=== PATIENT | male | born 1975 | race Caucasian/White ===

== ENCOUNTER 2023-04-19 09:42 | Inpatient (IN) ==
[2023-04-19 10:36] LABS: Basophils # (auto) 0.03 K/uL (0.00-0.20); Basophils % (auto) 0.3 %; Eosinophils # (auto) 0.15 K/uL (0.00-0.50); Eosinophils % (auto) 1.5 %; Hematocrit (blood only) 46.4 % (42.0-52.0); Hemoglobin 15.4 g/dl (14.0-18.0); Immature Granulocytes # (auto) 0.03 K/uL (0.01-0.20); Immature Granulocytes % (auto) 0.3 %; Lymphocytes # (auto) 2.08 K/uL (1.20-3.40); Lymphocytes % (auto) 20.1 %; Mean Corpuscular Hemoglobin 29.7 pg (25.0-34.0); Mean Corpuscular Hgb Conc 33.2 g/dL (32.0-36.0); Mean Corpuscular Volume 89.6 fL (80.0-100.0); Mean Platelet Volume 9.2 fL (9.4-12.4); Monocytes % (auto) 6.8 %; Neutrophils # (auto) 7.34 K/uL (1.40-6.50); Platelet Count 235 K/uL (130-400); RDW Coefficient of Variation 13.5 % (11.5-14.5); RDW Standard Deviation 44.2 fL (36.4-46.3); Red Blood Count 5.18 M/uL (4.70-6.10); White Blood Count 10.33 K/ul (4.8-10.8)
[2023-04-19 10:49] LABS: Albumin Globulin Ratio 1.3 (0.9-2); Albumin Level 4.2 gm/dl (3.4-5.0); BUN Creatinine Ratio 20.7 (10-20); Bilirubin,Total 0.3 mg/dl (0.2-1.0); Calcium 9.2 mg/dl (8.6-10.3); Creatinine Clr Calc Pharmacy 129.3 ml/min; Est GFR (Non-African American) 96.6 ml/min; Globulin 3.3 gm/dl (2.5-4.0); Potassium 4.2 mmol/L (3.5-5.1); Total Protein 7.5 gm/dl (6.0-8.3)
[2023-04-19 11:01] LABS: INR 0.9 (0.9-1.1); Partial Thromboplastin Time 27 Seconds (21-31); Prothrombin Time 10.3 Seconds (9.0-12.0)
--- NOTE | 2023-04-19 11:05 | XRay Report ---
XR chest 1V not portable HISTORY: Chest pain, nonspecific COMPARISON: Chest 01/12/2012. FINDINGS: The lungs are clear. Cardiac silhouette is normal in size. No pleural effusions. No pneumot horax. IMPRESSION: No acute process. ACT 112: Negative or not required by law. Electronically signed by: Charles Conde M.D. 04/19/2023 11:04 AM
[2023-04-19 11:14] LABS: Troponin I High Sensitivity 87.6 pg/ml (0-20)
--- NOTE | 2023-04-19 11:25 | Electrocardiogram Report ---
Test Reason : Blood Pressure : / mmHG Vent. Rate : 104 BPM Atrial Rate : 104 BPM P-R Int : 164 ms QRS Dur : 088 ms QT Int : 334 ms P-R-T Axes : 029 021 018 degrees QTc Int : 439 ms Sinus tachycardia Otherwise normal ECG When compared with ECG of 12-JAN-2012 17:33, No significant change was found Confirmed by Ronak Garrett ([id number]) on 04/19/2023 11:25:13 AM Referred By: Confirmed By:Ronak Garrett
--- NOTE | 2023-04-19 11:39 | Emergency Department Note ---
Impression & Plan Pulmonary embolism, Chest pain, Elevated troponin I level, DVT (deep venous thrombosis) ED Provider Note NAME: JANET RICKETTS AGE: 48 SEX: M : 1975 ARRIVES VIA: Walk-In INFORMANT: Patient, ED PROVIDER(S): Montrell Paul DO CHIEF COMPLAINT: Chest pain HPI: The patient is a 48-year-old male who presented to the emergency department for an evaluation of chest pain. The patient describes anterior chest pain that began this morning while he was exerting himself. He started noticing shortness of breath as well as left calf pain. The patient denies having any fever or cough. He denies having any back pain. The patient did not take any medication prior to coming to the emergency department. He still describes anterior chest pressure but denies having any difficulty breathing at this time. The patient denies having any abdominal pain or vomiting. He felt very diaphoretic at the time. ROS: See above HPI for pertinent positives & negatives. A total of 10 systems reviewed and were otherwise negative. PAST MEDICAL HISTORY: See Below PAST SURGICAL HISTORY: See Below FAMILY HISTORY: See Below SOCIAL HISTORY: See Below HOME MEDICATIONS: See Below ALLERGIES: See Below VITALS: See Below PHYSICAL EXAMINATION: GENERAL: Patient is awake alert in no acute distress patient is resting comfortably and showing no signs of anxiety EYES: The conjunctivae are clear. The pupils are round and reactive. EARS, NOSE, MOUTH AND THROAT: The nose is without any evidence of any deformity. NECK: The neck is nontender and supple. RESPIRATORY: Normal respiratory effort is noted there is no evidence of wheezing rhonchi or rales CARDIOVASCULAR: Regular rate and rhythm noted there no murmurs rubs or gallops normal S1 normal S2. GASTROINTESTINAL: The abdomen is soft. Abdomen is nontender. MUSCULOSKELETAL/EXTREMITIES: There is no evidence of gross deformity full range of motion is noted in the hips and shoulders. SKIN: There is no obvious evidence of any rash. There are no petechiae, pallor or cyanosis noted. NEUROLOGIC: Patient is awake alert and oriented x3 MEDICAL DECISION MAKING: The patient is a 48-year-old male who presented to the emergency department for an evaluation of chest pain. The patient was found to have an abnormal EKG but it does appear to be similar to previous. He was initially evaluated in the waiting room however his troponin came back elevated so he was placed in a room soon as possible. The patient was tachycardic. Oxygen saturation was acceptable. His chest pain appeared to be exertional but he also had calf pain. For this reason a D-dimer was ordered which was significantly elevated. For this reason CT of the chest was ordered. My interpretation of the CT of the chest was consistent with bilateral pulmonary emboli with significant clot burden. For this reason heparin was ordered. I discussed the patient's laboratory and radiographic studies with him and his significant other. I also discussed his condition with the on-call [facility] Hospitalist. They have agreed to evaluate the patient in the emergency department for further management and disposition. Triage Nursing notes reviewed. Prior medical records reviewed Vital Signs: reviewed and remarkable for tachycardia. Differential diagnosis: Cardiac ischemia, aortic dissection, pulmonary embolism, pneumothorax, pneumonia, pericarditis, myocarditis, esophageal rupture, GERD, cholecystitis, pancreatitis, musculoskeletal, as well as other pathologies. ER treatment provided: See below Diagnostics interpreted by me: ECG: EKG was obtained in the emergency department. My interpretation is sinus tachycardia at 104 bpm. There is no ectopy. Nonspecific ST segment abnormalities noted. This was compared to a tracing from January 12, 2012. No changes were noted Cardiac Monitoring: An order was placed for continuous cardiac monitoring. The monitor shows a rate of 108 bpm with sinus tachycardia. Laboratory studies: As stated above and show below. Imaging studies: See below. Radiographic imaging was reviewed by myself Consultation(s): I discussed this case with Charisma who is on-call for the [facility] Hospitalist group. ED COURSE: Procedures: none Critical Care: I have personally spent greater than 55 minutes of critical care time in the direct management of this patient. This includes bedside care, interpretation of diagnostic studies, and testing, discussion with consultants, patient, and family members, and other required patient management activities. This 55 minutes is in excess of all separately billable procedures. Past Med/Surg History Medical History Depression Pre-diabetes PRESLEY (obstructive sleep apnea) Hyperlipidemia Surgical History (Updated 04/19/23 @ 13:51 by Sue Pond PA-C) History of esophagogastroduodenoscopy (EGD) H/O colonoscopy No significant past surgical history Family History (Updated 04/19/23 @ 15:01 by Sue Pond PA-C) Denies family history of Clotting disorder Social History (Updated 04/19/23 @ 15:06 by Sue Pond PA-C) Smoking Status: Never smoker Hx Alcohol Use: No Hx Substance Use: No Preferred Language: Vietnamese [employer]eral Car [employer] Required: No Beliefs That Will Affect Care: None marital status: Current Living Situation: Spouse current occupational status: employed Other Information That Helps Us Care for You: No Feels Safe at Home: Yes Safety Concerns: Feels Safe At This Time Assistive Devices: CPAP and Glasses Allergies Allergies Allergy/AdvReac Type Severity Reaction Status Date / Time Penicillins Allergy Unknown ? Unverified 11/30/15 08:07 Home Meds Home Medications Medication Instructions Recorded Confirmed bupropion HCl 150 mg tablet,12 hr 150 mg PO [facility] 04/19/23 04/19/23 sustained-release buspirone 30 mg tablet 15 mg PO [facility] 04/19/23 04/19/23 lovastatin 40 mg tablet 80 mg PO HS 04/19/23 04/19/23 sertraline 25 mg tablet 25 mg PO DAILY 04/19/23 04/19/23 sertraline 50 mg tablet 50 mg PO DAILY 04/19/23 04/19/23 Results & Data (ED) Vital Signs Vital Signs - 24 hr 04/19/23 09:52 04/19/23 10:01 04/19/23 10:01 Temperature 36.4 C L Temperature Source Temporal Artery Scan Pulse Rate 107 H 102 H Pulse Rate [Apical] Pulse Rhythm Regular Respiratory Rate 18 22 Respiratory Effort / Characteristics Respiratory Depth Respiratory Pattern Blood Pressure 118/86 Blood Pressure [Left Arm] Blood Pressure Mean 96 Blood Pressure Mean [Left Arm] Pulse Oximetry 95 95 95 Oxygen Delivery Method Room Air Room Air Room Air Sepsis Recent Fever Within 48 Hours No Sepsis New/Unexplained Change in Mental Status No Sepsis Action Taken by Nursing No Action Required 04/19/23 11:40 04/19/23 11:40 04/19/23 13:23 Temperature Temperature Source Pulse Rate Pulse Rate [Apical] 91 H Pulse Rhythm Respiratory Rate 18 Respiratory Effort / Characteristics Non-Labored Spontaneous Respiratory Depth Normal Respiratory Pattern Regular Blood Pressure Blood Pressure [Left Arm] 132/88 Blood Pressure Mean Blood Pressure Mean [Left Arm] 102 Pulse Oximetry 95 96 Oxygen Delivery Method Room Air Room Air Room Air Sepsis Recent Fever Within 48 Hours Sepsis New/Unexplained Change in Mental Status Sepsis Action Taken by Snf Medications Current Medication List: was personally reviewed by me Laboratory Data Attestation: I reviewed the patient's lab results. 04/20/23 05:35 04/20/23 05:35 Lab Results 04/19/23 04/19/23 04/19/23 Range/Units 10:19 10:19 11:55 WBC 10.33 (4.8-10.8) K/ul RBC 5.18 (4.70-6.10) M/uL Hgb 15.4 (14.0-18.0) g/dl Hct 46.4 (42.0-52.0) % MCV 89.6 (80.0-100.0) fL MCH 29.7 (25.0-34.0) pg MCHC 33.2 (32.0-36.0) g/dL RDW Std Deviation 44.2 (36.4-46.3) fL RDW Coeff of Lionel 13.5 (11.5-14.5) % Plt Count 235 (130-400) K/uL MPV 9.2 L (9.4-12.4) fL Immature Gran % (Auto) 0.3 % Neut % (Auto) 71.0 % Lymph % (Auto) 20.1 % [place] % (Auto) 6.8 % Eos % (Auto) 1.5 % Baso % (Auto) 0.3 % Neut # (Auto) 7.34 H (1.40-6.50) K/uL Lymph # (Auto) 2.08 (1.20-3.40) K/uL [place] # (Auto) 0.70 H (0.11-0.59) K/uL Eos # (Auto) 0.15 (0.00-0.50) K/uL Baso # (Auto) 0.03 (0.00-0.20) K/uL Immature Gran # (Auto) 0.03 (0.01-0.20) K/uL PT 10.3 (9.0-12.0) Seconds INR 0.9 (0.9-1.1) APTT 27 (21-31) Seconds PTT Ratio 1.0 D-Dimer 8260 H* Cancelled (0-500) ug/L FEU Sodium 138 (136-145) mmol/L Potassium 4.2 (3.5-5.1) mmol/L Chloride 107 (98-107) mmol/L Carbon Dioxide 23 (21-32) mmol/L Anion Gap 8 (3-11) BUN 19 (6-23) mg/dl Creatinine 0.92 (0.6-1.4) mg/dl Est Cr Clr Drug Dosing 129.3 ml/min Est GFR ( Amer) 112.0 ml/min Est GFR (Non-Af Amer) 96.6 ml/min BUN/Creatinine Ratio 20.7 H (10-20) Glucose 127 H (70-99(Fasting)) mg/dl Calcium 9.2 (8.6-10.3) mg/dl Total Bilirubin 0.3 (0.2-1.0) mg/dl AST 18 (13-39) U/L ALT 25 (7-52) U/L Alkaline Phosphatase 68 (34-104) U/L Troponin I High Sens 87.6 H* 182.6 H* D (0-20) pg/ml Total Protein 7.5 (6.0-8.3) gm/dl Albumin 4.2 (3.4-5.0) gm/dl Globulin 3.3 (2.5-4.0) gm/dl Albumin/Globulin Ratio 1.3 (0.9-2) Administered Medications Bupropion HCl (Bupropion Sr 150 Mg Tabcr) 150 mg PO [facility] Stop: 05/19/23 20:59 Last Admin: 04/19/23 20:20 Dose: 150 mg Documented By: SAIMA Buspirone HCl (Buspirone 15 Mg Tab) 15 mg PO [facility] Stop: 05/19/23 20:59 Last Admin: 04/19/23 20:20 Dose: 15 mg Documented By: SAIMA Heparin Sodium/Dextrose (Heparin Sodium/Dextrose) 25,000 units in 500 mls @ 34 mls/hr IV .[id number] [facility]; Protocol Stop: 05/19/23 13:14 Last Admin: 04/20/23 03:06 Dose: 1,700 units/hr, 34 mls/hr Documented By: SAIMA Co-signed By: MELISSA Titration: 04/20/23 03:06 Dose: Infused Documented By: SAIMA Co-signed By: MELISSA Titration: 04/19/23 19:30 Dose: 1,700 units/hr, 34 mls/hr Documented By: SAIMA Co-signed By: MELISSA Titration: 04/19/23 19:24 Dose: 1,700 units/hr, 34 mls/hr Documented By: HAKAN Co-signed By: SAIMA Admin: 04/19/23 13:19 Dose: 1,700 units/hr, 34 mls/hr Documented By: NICKI Co-signed By: KALNY Lovastatin (Lovastatin 20 Mg Tab) 80 mg PO HS [facility] Stop: 05/19/23 20:59 Last Admin: 04/19/23 20:20 Dose: 80 mg Documented By: SAIMA Discontinued Medications Aspirin (Aspirin Chew 324 Mg) 324 mg PO NOW STA Stop: 04/19/23 11:26 Last Admin: 04/19/23 11:43 Dose: 324 mg Documented By: RAE Heparin Sodium (Porcine) (Heparin Sod (Porcine) 1000 Unit/Ml) 8,000 units IV NOW ONE Stop: 04/19/23 13:16 Last Admin: 04/19/23 13:20 Dose: 8,000 units Documented By: NICKI Co-signed By: KALYN Ioversol (Optiray 320 125ml) 116 ml IV ONCE ONE Stop: 04/19/23 12:51 Last Admin: 04/19/23 12:48 Dose: 116 ml Documented By: GRACE Imaging Data Attestation: I personally reviewed and interpreted this imaging study as follows: My Impression: 1 view chest x-ray was obtained in the emergency department. My interpretation is no free air or definite infiltrate, final report below. CT angiography of the chest was obtained. My interpretation is bilateral pulmonary emboli with dilation of the right ventricle. Final report below. Radiologist's Impression: Venous Doppler Study 04/19/23 12:50 Exam(s): US VENOUS BILATERAL LOWER EXTREMITIES EXAM: US Duplex Bilateral Lower Extremities Veins CLINICAL HISTORY: calf pain. TECHNIQUE: Real-time duplex ultrasound scan of the bilateral lower extremity veins integrating B-mode two-dimensional vascular structure, Doppler spectral analysis, color flow Doppler imaging and compression. COMPARISON: No relevant prior studies available. FINDINGS: Right deep veins: Unremarkable. No DVT in the right common femoral, femoral, proximal deep femoral or popliteal veins. The veins demonstrate normal color flow, are normally compressible, with normal phasic flow and/or augmentation response. The interrogated calf veins are patent. Right superficial veins: Unremarkable. No thrombus in the saphenofemoral junction. Left deep veins: No DVT in the left common femoral, proximal deep femoral or femoral veins. Echogenic material noted in the left popliteal vein, which is only partially compressible and demonstrates partial filling defect and color flow imaging. There is occlusion of the left posterior tibial veins also noted. The remaining calf veins are patent. Left superficial veins: Unremarkable. No thrombus in the saphenofemoral junction. Soft tissues: No acute findings. No popliteal cyst. IMPRESSION: 1. Findings noted within the distal left popliteal vein, consistent with partially occlusive thrombus. There is occlusion of the left posterior tibial veins also noted. 2. No proximal/central extension of the left popliteal deep vein thrombosis to involve the left superficial femoral or common femoral veins. 3. No evidence for deep vein thrombosis involving the right lower extremity. Electronically signed by: Brian Chirinos MD 04/20/23 03:10 AM Discharge Plan Visit Data Chief Complaint: Shortness of Breath/Dyspnea Stated Complaint: SOB/TIGHTNESS IN CHEST/COLD SWEAT/DIZZY ED Provider: Montrell Paul Discharge Problem: Pulmonary embolism, Chest pain, Elevated troponin I level, DVT (deep venous thrombosis) Patient Disposition: Being Evaluated by Hospitalist Discharge Instructions Interventions: ED Discharge Assessment Last Done: 04/19/23 17:24 Discharge Problem: Pulmonary embolism Qualifiers: Pulmonary embolism type: unspecified Chronicity: acute Acute cor pulmonale presence: with acute cor pulmonale Qualified Code(s): I26.09 - Other pulmonary embolism with acute cor pulmonale Chest pain Qualifiers: Chest pain type: unspecified Qualified Code(s): R07.9 - Chest pain, unspecified DVT (deep venous thrombosis) Qualifiers: DVT location: lower extremity Affected thrombotic vein of extremity: popliteal Chronicity: acute Laterality: left Qualified Code(s): I82.432 - Acute embolism and thrombosis of left popliteal vein
[2023-04-19] MEDS: ASPIRIN CHEW 324 MG PO STA (11:43)
[2023-04-19 12:07] LABS: D Dimer 8260 ug/L FEU (0-500)
[2023-04-19] MEDS: OPTIRAY 320 125ml IV ONE (12:48)
[2023-04-19] MEDS ORDERED: Heparin IV Adult Wt-Based Standard w/ INITIAL Bolus Protocol IV STA (12:50)
--- NOTE | 2023-04-19 13:05 | CT Scan Report ---
CT angio chest PE protocol CT DOSE: 1062.74 mGy.cm HISTORY: 48 years-old Male with PE. Acute shortness of breath TECHNIQUE: Multiple CTA images of the chest were obtained after the intravenous administration of 116 ml Optiray. Coronal and sagittal MIPS were obtained from the axial data set and were submitted for review. All measurements were obtained according to NASCET criteria. A dose lowering technique was u tilized adhering to the principles of ALARA. COMPARISON: Chest radiograph of same day, CTA chest 01/12/2012 FINDINGS: CTA: Heart is normal in size. No pericardial effusion. Unremarkable thoracic aorta. Opacified venous colla terals of the upper midline chest wall. There is straightening of the intraventricular septum with di lation of the right heart. There is a large amount of bilateral lobar, segmental and subsegmental pul monary emboli. No sagittal pulmonary emboli identified. CT CHEST: No pneumothorax, pleural effusion, airspace consolidation or pulmonary edema. Central airways are pat ent. Unremarkable thyroid. No lymphadenopathy. No acute upper abdominal abnormality. Unremarkable sof t tissues. No acute fracture. IMPRESSION: 1. Extensive bilateral pulmonary emboli with right heart strain. 2. No pleural effusion, lymphadenopathy or airspace consolidation. ACT 112: Negative or not required by law. The above report was generated using voice recognition software. It may contain grammatical, syntax o r spelling errors. Electronically signed by: Narayan Quiñones M.D. 04/19/2023 1:04 PM
[2023-04-19] MEDS ORDERED: HEPARIN SOD (PORCINE) 1000 UNIT/ML IV ONE (13:06)
[2023-04-19] MEDS: HEPARIN SODIUM/DEXTROSE 25,000 UNITS/500 ML BAG IV SCH (13:19)
[2023-04-19] MEDS: HEPARIN SOD (PORCINE) 1000 UNIT/ML IV ONE (13:20)
--- OUTSIDE RECORDS SUMMARY | 2023-04-19 14:17 | External Medical Summary | Summary of Care ---
Author Name Unknown Organization [facility] Address [address] [facility] [place] [address] Phone [phone] Care Team Providers Care Superintendent Oil Field Drilling Name Role Phone Juliann Fernández MD Primary Care Provider + Reason for Visit * Reason Onset Date Comments Durable Medical Equipment 04/11/2023 CPAP R esupply Encounter Details Date Type Department Care Team (Late st Contact Info) Description 04/11/2023 Telephone Sleep Lab [facility] [address] [facility] [place] [address] Raymond Teresa, RX SPECIALIST Durable Medical Equipment (CPAP Resupply ) Allergies Active Allergy Reactions Criticality Noted Date Comments Penicillins 05/04/2007 Vomiting hives documented as of this encounter (statuses as of 04/11/2023) Medications Medication Sig Dispensed Refills Start Date End Date Status CPAP every night at bedtime. 0 Active Diclofenac Sodium 1 % External Gel (Voltaren)Indicatio ns:Acute pain of left knee Apply topically to affected area 3 times a day as needed (pain). Apply to Left knee affected area 100 g 3 02/15/2022 Active Additional Information Patient not taking.Reported on 03/16/2023 Silver sulfADIAZINE 1 % External Cream (Silvadene) Apply to the left great toe daily for 7-10 days. 50 g 1 08/10/2022 Active Additional Information Patient not taking.Reported on 03/16/2023 buPROPion HCl ER (SR) 150 MG Oral Tablet Extended Release 12 Hour (Wellbutrin SR)Indications:BEVERLY (generalized anxiety disorder) TAKE ONE TABLET BY MOUTH IN THE MORNING AND ONE TABLET BEFORE BEDTIME 180 Tablet 1 10/20/2022 Active busPIRone HCl 30 MG Oral TabletIndications:G AD (generalized anxiety disorder) TAKE 1/2 TABLET BY MOUTH IN THE MORNING AND 1/2 TABLET BEFORE BEDTIME 90 Tablet 3 10/20/2022 Active Lovastatin 40 MG Oral TabletIndications:D yslipidemia, goal LDL below 130 TAKE 2 TABLETS BY MOUTH BEFORE BEDTIME 180 Tablet 3 10/20/2022 Active Sertraline HCl 25 MG Oral Tablet (Zoloft) TAKE ONE TABLET BY MOUTH IN THE MORNING ALONG WITH ZOLOFT 50 MG TOTAL DAILY DOSE OF 75MG 90 Tablet 3 10/20/2022 Active Sertraline HCl 50 MG Oral Tablet (Zoloft) TAKE ONE TABLET BY MOUTH IN THE MORNING ALONG WITH 25 MG ( TOTAL DOSE OF 75MG.) 90 Tablet 3 10/20/2022 Active Azithromycin 250 MG Oral Tablet (Zithromax) Take 2 tablets by mouth on day one, then take 1 tablet for the next four days 6 Tablet 2 03/08/2023 Active Additional Information Patient not taking.Reported on 03/16/2023 dexAMETHasone 0.75 MG Oral Tablet (Decadron) Take 1 tablet by mouth 3 times a day until gone 21 Tablet 0 03/08/2023 Active documented as of this encounter (statuses as of 04/11/2023) Active Problems Problem Noted Date Diagnosed Date Prediabetes 08/22/2022 Overview: Per Prediabetes protocol Body mass index (BMI) of 40.0 to 44.9 in adult 0 07/21/2020 Overview: Per Obesity protocol RLS (restless legs syndrome) 01/27/2020 PRESLEY (obstructive sleep apnea) 01/27/2020 Mild single current episode of major depressive disorder 12/25/2019 Other seborrheic keratosis 05/28/2013 Multiple pigmented nevi 05/28/2013 Lu angioma 05/28/2013 BMI 35-39 ISOLATED (SEE ACTUAL BMI) 08/24/2009 Overview: Per Obesity Protocol, #19 Dyslipidemia, goal LDL below 130 Overview: ICD-10 update of inactive term documented as of this encounter (statuses as of 04/11/2023) Resolved Problems Problem Noted Date Diagnosed Date Resolved Date Hypersomnolence disorder 01/27/2020 Morbid obesity due to excess calories 12/25/2019 12/25/2019 Reflux esophagitis 0 Dyslipidemia, goal LDL below 100 03/21/2013 Hyperlipidemia with target LDL less than 130 09/20/2013 Overview: ICD-10 update of inactive term documented as of this encounter (statuses as of 04/11/2023) Immunizations Name Administration Dates Next Due COVID-19 mRNA, LNP-s, No Pre serve, 2-Dose Series (Moderna) 05/09/2020,04/07/2020 COVID-19, mRNA, LNP-s, PF, B ooster, 100mcg/0.5mg (Moderna) 06/21/2021,01/06/2021 Covid-19, Mrna, Lnp-s, Pf, B ivalent, 30 Mcg, IM, 12 yrs and above (Pfizer) 12/02/2021 DTaP Dipth/Tet/Acell Pertussis (Infanrix), Peds 08/11/2001 Hepatitis B, 20+ yrs 08/02/2022 Pneumococcal Conjugate Vacci ne, 20-valent ([id number]) 08/02/2022 Seasonal Influenza, PF, 6 M & above, IM , (FluLaval or Fluzone) 12/25/2019,02/23/2018,02/10/2017 Seasonal Influenza, Quadriva lent Hd (Fluzone Hd) 12/18/2021 Seasonal Influenza, Quadriva lent, No Preserve, IM 12/03/2015 Seasonal Influenza, Split, I IV3, With Preserve, Inj 03/24/2014,03/21/2013,02/29/2012,2010 TD - Tetanus/Diptheria (ADULT) 12/25/2019 TD, Preservative Free 12/25/2019 TDAP (age 11 and older)(Adacel) 05/12/2009 documented as of this encounter Social History Tobacco Use Types Packs/Day Years Used Date Smoking Tobacco: Never Smokeless Tobacco: Never Alcohol Use Standard Drinks/Week Comments Yes 0 (1 standard drink = 0.6 oz pur e alcohol) a few beers seldom PHQ-2 Answer Date Recorded PHQ Adult Total Score 0 08/02/2022 Hunger Vital Sign Answer Date Recorded Within the past 12 months, y ou worried that your food would run out before you got the money to buy more. Never true 07/22/19 23 Within the past 12 months, t he food you bought just didn't last and you didn't have money to get more. Never true 07/21/2022 Sex and Gender Information Value Date Recorded Sex Assigned at Male 07/21/2022 6:13 PM EDT Gender Identity Male 07/21/2022 6:13 PM EDT Sexual Orientation Straight 07/21/2022 6: 13 PM EDT Job Start Date Occupation Industry Not on file Not on file Not on file documented as of this encounter Miscellaneous Notes * Telephone Encounter - Raymond Teresa RRT - 04/11/2023 1:34 PM EST PPM Order [id number] Order Items Add Items to Order: Enter Product Id or Description Product Number Qty Description Remove [id number] 3 S9 FILTERS - 2 PACK Remove [id number] 1 SLIMLINE TUBING Remove [id number] 1 AIR 10 HUMIDAIR STANDARD TUB Remove [id number] 2 MEDIUM - AIRFIT F30 CUSHION Remove [id number] 1 MEDIUM - AIRFIT F30 COMPLETE MASK SYS * Telephone Encounter - Michelle Raymundo OSA - 04/11/2023 11:26 AM EST [facility] [id number] ALEM BS [employer] Eligible for all supplies (slimline tubing) and 3 months supply cushions and disp filters * Telephone Encounter - Raymond Teresa RRT - 04/11/2023 10:11 AM EST Contacted via: phone Requested items: All supplies Mask: Resmed [id number] Tubing: slimline Machine: Resmed Last office visit: 03/16/2023 Order date: 03/16/2023 Current insurance: [employer] [id number] Compliance data: Compliance Summary 02/23/2023 - 03/24/2023 (30 days) Percent of Days with Usage >= 4 Hours 100.0% The patient was educated on the importance of those who have a pacemaker, a defibrillator, or a cochlear implant or who's bed partner has any previously mentioned devices to NOT use headgear that utilizes magnets, per the black top machine operator. documented in this encounter Plan of Treatment Upcoming Encounters Date Type Department Care Team (Late st Contact Info) Description 08/30/2023 8:15 AM EDT Office Visit Urology Sophia Helm [address] [place] [address] Smooth Rodriguez Jr., MD [address] [place] [address] 09/19/2023 10:30 AM EDT Telemedicine Sleep Disorders Ctr [facility] [address] [place] [phone] Sapna Celaya CRNP [address] [place] [address] Scheduled Procedures Name Priority Associated Diagnoses Date/Ti me COLONOSCOPY FLEXIBLE PROXIMA L DIAGNOSTIC Recall Family history of colon cancer Health Maintenance Due Date Last Done Comments Hepatitis B (2 of 3 - 19+ 3-dose series) 08/30/2022 08/02/2022 COVID-19 Vaccine (2022- season) 2022 12/02/2021, 06/21/2021, 01/06/2021, Additional history exists Influenza Vaccine (FLU shot) (#1) 2022 12/18/2021, 12/25/2019, 02/23/2018, Additional history exists Depression Screening 08/03/2023 08/02/2022 HbA1c 08/03/2023 08/02/2022, 05, 12/25/2019, Additional history exists COLONOSCOPY-EVERY 5 YRS AGES 18-100 04/20/2025 04/20/2020, 04/20/2020, 12/31/2015, Additional history exists Lipid Panel 08/03/2027 08/02/2022, 07/12, 12/25/2019, Additional history exists DTaP,Tdap,and Td Vaccines (5 - Td or Tdap) 12/24/2029 12/25/2019, 12/25/2019, 05/12/2009, Additional history exists Pneumococcal Vaccine: Pediatrics (0 to 5 Years) and At-Risk Patients (6 to 64 Years) Completed 08/02/2022 GARDASIL-HPV IMMUNIZATION SERIES Aged Out No longer eligible based on patient's age to complete this topic MENINGOCOCCAL (MENACTRA/MENVEO) Aged Out No longer eligible based on patient's age to complete this topic documented as of this encounter Medical Devices Implanted Type Area Accounts Receivable Coordinator Device Identifier Shelf Expiration Date Model / Serial / Lot Clip Quick 2.8mm 230cm - [id number] Implanted:Qty: 1 on 04/20/2020 by Nawaf Snyder DO at ENDOSCOPY [facility] [employer] [facility] 06/10/2022 [id number]-202UR.A / / documented as of this encounter Care Teams Superintendent Oil Field Drilling Relationship Specialty Start Date End Date Juliann Fernández MD [address] [facility] [place] [address] PCP - General 05/04/07 documented as of this encounter
--- OUTSIDE RECORDS SUMMARY | 2023-04-19 14:18 | External Medical Summary | Summary of Care ---
Author Name Unknown Organization [facility] Address [address] [facility] [place] [address] Phone [phone] Care Team Providers Care Children'S Service Worker Name Role Phone Juliann Fernández MD Primary Care Provider + Encounter Details Date Type Department Care Team (Late st Contact Info) Description 01/31/2023 Telephone General Internal Medicine [facility] [address] [place] [id number] Juliann Fernández MD [address] [facility] [address] Allergies Active Allergy Reactions Criticality Noted Date Comments Penicillins 05/04/2007 Vomiting hives documented as of this encounter (statuses as of 02/08/2023) Medications Medication Sig Dispensed Refills Start Date End Date Status CPAP every night at bedtime. 0 Active Diclofenac Sodium 1 % External Gel (Voltaren)Indication s:Acute pain of left knee Apply topically to affected area 3 times a day as needed (pain). Apply to Left knee affected area 100 g 3 02/15/2022 Active Silver sulfADIAZINE 1 % External Cream (Silvadene) Apply to the left great toe daily for 7-10 days. 50 g 1 08/10/2022 Active buPROPion HCl ER (SR) 150 MG Oral Tablet Extended Release 12 Hour (Wellbutrin SR)Indications:BEVERLY (generalized anxiety disorder) TAKE ONE TABLET BY MOUTH IN THE MORNING AND ONE TABLET BEFORE BEDTIME 180 Tablet 1 10/20/2022 Active busPIRone HCl 30 MG Oral TabletIndications:GA D (generalized anxiety disorder) TAKE 1/2 TABLET BY MOUTH IN THE MORNING AND 1/2 TABLET BEFORE BEDTIME 90 Tablet 3 10/20/2022 Active Lovastatin 40 MG Oral TabletIndications:Dy slipidemia, goal LDL below 130 TAKE 2 TABLETS [...] OF 75MG.) 90 Tablet 3 10/20/2022 Active documented as of this encounter (statuses as of 02/08/2023) Active Problems Problem Noted Date Diagnosed Date [...] as of this encounter (statuses as of 02/08/2023) Resolved Problems Problem Noted Date Diagnosed Date Resolved Date Hypersomnolence disorder 01/27/2020 Morbid obesity due to excess calories 12/25/2019 12/25/2019 Reflux esophagitis 0 Dyslipidemia, goal LDL below 100 03/21/2013 Hyperlipidemia with target LDL less than 130 09/20/2013 Overview: ICD-10 update of inactive term documented as of this encounter (statuses as of 02/08/2023) Immunizations Name Administration Dates Next Due COVID-19 mRNA, LNP-s, No Pre serve, 2-Dose Series (Moderna) 05/09/2020,04/07/2020 COVID-19, mRNA, LNP-s, PF, B ooster, 100mcg/0.5mg (Moderna) 06/21/2021,01/06/2021 Covid-19, Mrna, Lnp-s, Pf, B ivalent, 30 Mcg, IM, 12 yrs and above (Pfizer) 12/02/2021 DTaP Dipth/Tet/Acell Pertussis (Infanrix), Peds 08/11/2001 Hepatitis B, 20+ yrs 08/02/2022 Pneumococcal Conjugate Vacci ne, 20-valent ([id number]) 08/02/2022 SEASONAL INFLUENZA, PF, 6 M & Above, IM , (FLULAVAL or FLUZONE) 12/25/2019,02/23/2018,02/10/2017 Seasonal Influenza, Quadriva lent Hd (Fluzone [...] encounter Miscellaneous Notes * Telephone Encounter - Yamilka Levy OSA - 02/08/2023 10:34 AM EST Several attempts Letter sent * Telephone Encounter - Yamilka Levy OSA - 02/07/2023 3:38 PM EST Lmom 02/07 2nd attempt * Telephone Encounter - Yamilka Levy OSA - 02/01/2023 10:55 AM EST My g sent 02/01 * Telephone Encounter - Keily Rollins OSA - 01/31/2023 4:40 PM EST No Appointments Available Patient declined appointments?: No What Visit Type is needed? Acute If Acute Visit Type is needed, were surrounding clinics offered to patient (Yes/No)? Yes Was patient offered appointments with other available providers (Yes/No)? Yes See Call Details? (Yes or No): No Pt has increased anxiety - please call to schedule an availability documented in this encounter Plan of Treatment Upcoming Encounters Date Type Department Care Team (Late st Contact Info) Description 08/30/2023 8:15 AM EDT Office Visit Urology Sophia Helm [address] [place] [address] Smooth Rodriguez Jr., MD [address] [place] [address] Scheduled Procedures Name Priority Associated Diagnoses Date/Ti me COLONOSCOPY FLEXIBLE PROXIMA L DIAGNOSTIC Recall Family history of colon cancer Health Maintenance Due Date Last Done Comments Hepatitis B (2 of 3 - 19+ 3-dose series) 08/30/2022 08/02/2022 COVID-19 Vaccine (6 - 2022-24 season) 2022 12/02/2021, 06/21/2021, 01/06/2021, Additional history exists Influenza Vaccine (FLU shot) (#1) 2022 12/18/2021, 12/25/2019, 02/23/2018, Additional history exists Depression Screening 08/03/2023 08/02/2022 HbA1c 08/03/2023 08/02/2022, 07/12, 12/25/2019, Additional history exists COLONOSCOPY-EVERY 5 YRS [...] this encounter Medical Devices Implanted Type Area Cement Fittings Maker Device Identifier Shelf Expiration Date Model / Serial / Lot Clip Quick 2.8mm 230cm - [id number] Implanted:Qty: 1 on 04/20/2020 by Nawaf Snyder DO at ENDOSCOPY [facility] [employer] 06/10/2022 [id number]-202UR.A / / documented as of this encounter Care Teams Children'S Service Worker Relationship Specialty Start Date End Date Juliann Fernández MD [address] [place] [address] [place] [address] PCP - General 05/04/07 documented as of this encounter
--- OUTSIDE RECORDS SUMMARY | 2023-04-19 14:18 | External Medical Summary | Summary of Care ---
Author Name Unknown Organization [facility] Address [address] [facility] [address] Phone [phone] Care Team Providers Care Heel Top Lift Splitter Name Role Phone Juliann Fernández MD Primary Care Provider + Encounter Details Date Type Department Care Team (Late st Contact Info) Description 01/31/2023 Telephone General Internal Medicine [facility] [address] [place] [phone] Juliann Fernández MD [address] [facility] [address] Allergies Active Allergy Reactions Criticality Noted Date Comments Penicillins 05/04/2007 Vomiting hives documented as of this encounter (statuses as of 02/07/2023) Medications Medication Sig Dispensed Refills Start Date [...] as of this encounter (statuses as of 02/07/2023) Active Problems Problem Noted Date Diagnosed Date [...] as of this encounter (statuses as of 02/07/2023) Resolved Problems Problem Noted Date Diagnosed Date Resolved Date Hypersomnolence disorder 01/27/2020 Morbid obesity due to excess calories 12/25/2019 12/25/2019 Reflux esophagitis 0 Dyslipidemia, goal LDL below 100 03/21/2013 Hyperlipidemia with target LDL less than 130 09/20/2013 Overview: ICD-10 update of inactive term documented as of this encounter (statuses as of 02/07/2023) Immunizations Name Administration Dates Next Due COVID-19 mRNA, LNP-s, No Pre serve, 2-Dose Series (Moderna) 05/09/2020,04/07/2020 COVID-19, mRNA, LNP-s, PF, B ooster, 100mcg/0.5mg (Moderna) 06/21/2021,01/06/2021 Covid-19, Mrna, Lnp-s, Pf, B ivalent, 30 Mcg, IM, 12 yrs and above (Pfizer) 12/02/2021 DTaP Dipth/Tet/Acell Pertussis (Infanrix), Peds 08/11/2001 Hepatitis B, 20+ yrs 08/02/2022 Pneumococcal Conjugate Vacci ne, 20-valent ([id number]) 08/02/2022 SEASONAL INFLUENZA, PF, 6 M & [...] [address] [place] [address] Smooth Rodriguez Jr., MD [address] [place] [address] Scheduled Procedures Name Priority Associated Diagnoses Date/Ti [...] this encounter Medical Devices Implanted Type Area Lathe Sander Device Identifier Shelf Expiration Date Model / Serial / Lot Clip Quick 2.8mm 230cm - [id number] Implanted:Qty: 1 on 04/20/2020 by Nawaf Snyder DO at ENDOSCOPY [facility] [employer] 06/10/2022 [id number]-202UR.A / / documented as of this encounter Care Teams Heel Top Lift Splitter Relationship Specialty Start Date End Date Juliann Fernández MD [address] [place] [address], [place] [address] PCP - General 05/04/07 documented as of this encounter
--- OUTSIDE RECORDS SUMMARY | 2023-04-19 14:18 | External Medical Summary | Summary of Care ---
Author Name Unknown Organization [facility] Address [address] [place] [address] Phone [phone] Care Team Providers Care Testing Lead Name Role Phone Juliann Fernández MD Primary Care Provider + Reason for Visit * Reason Onset Date Comments Durable Medical Equipment 03/16/2023 Replac ement Autopap Setup Encounter Details Date Type Department Care Team (Late st Contact Info) Description 03/16/2023 Telephone Sleep Disorders, [address] [address] Raymond Teresa, TREATER HELPER Durable Medical Equipment (Replacement Aut... Allergies Active Allergy Reactions Criticality Noted Date Comments Penicillins 05/04/2007 Vomiting hives documented as of this encounter (statuses as of 03/17/2023) Medications Medication Sig Dispensed Refills Start Date [...] as of this encounter (statuses as of 03/17/2023) Active Problems Problem Noted Date Diagnosed Date [...] as of this encounter (statuses as of 03/17/2023) Resolved Problems Problem Noted Date Diagnosed Date Resolved Date Hypersomnolence disorder 01/27/2020 Morbid obesity due to excess calories 12/25/2019 12/25/2019 Reflux esophagitis 0 Dyslipidemia, goal LDL below 100 03/21/2013 Hyperlipidemia with target LDL less than 130 09/20/2013 Overview: ICD-10 update of inactive term documented as of this encounter (statuses as of 03/17/2023) Immunizations Name Administration Dates Next Due COVID-19 mRNA, LNP-s, No Pre serve, 2-Dose Series (Moderna) 05/09/2020,04/07/2020 COVID-19, mRNA, LNP-s, PF, B ooster, 100mcg/0.5mg (Moderna) 06/21/2021,01/06/2021 Covid-19, Mrna, Lnp-s, Pf, B ivalent, 30 Mcg, IM, 12 yrs and above (Pfizer) 12/02/2021 DTaP Dipth/Tet/Acell Pertussis (Infanrix), Peds 08/11/2001 Hepatitis B, 20+ yrs 08/02/2022 Pneumococcal Conjugate Vacci ne, 20-valent ([id number]) 08/02/2022 Seasonal Influenza, PF, 6 M & [...] Telephone Encounter - Raymond Teresa RRT - 03/17/2023 11:36 AM EST Liu Alejo. Per the billing department " Pt is Not Eligible for a replacement PAP device until 03/06 - Setup 03/02/20" Davin Solitario * Telephone Encounter - Michelle Raymundo OSA - 03/17/2023 11:25 AM EST Davin, Pt is Not Eligible for a replacement PAP device until 03/06 - Setup 03/02/20 * Telephone Encounter - Raymond Teresa RRT - 03/16/2023 1:35 PM EST Nelli/Chani/Michelle, ?? Received orders to setup [place] on a replacement autoPAP unit. Davin Solitario documented in this encounter Plan of Treatment Upcoming Encounters Date Type Department Care Team (Late st Contact Info) Description 08/30/2023 8:15 AM EDT Office Visit Urology Sophia Helm [address] [place] [address] Smooth Rodriguez Jr., MD [address] [place] [address] 09/19/2023 10:30 AM EDT Telemedicine Sleep Disorders Ctr [facility] [address] [place] [phone] Sapna Celaya CRNP [address] [place] [address] Scheduled Procedures Name Priority Associated Diagnoses Date/Ti [...] this encounter Medical Devices Implanted Type Area Remote Recruiter Device Identifier Shelf Expiration Date Model / Serial / Lot Clip Quick 2.8mm 230cm - [id number] Implanted:Qty: 1 on 04/20/2020 by Nawaf Snyder DO at ENDOSCOPY [facility] [employer] 06/10/2022 HX-202UR.A / / documented as of this encounter Care Teams Testing Lead Relationship Specialty Start Date End Date Juliann Fernández MD [address] [place] [address] PCP - General 05/04/07 documented as of this encounter
--- OUTSIDE RECORDS SUMMARY | 2023-04-19 14:18 | External Medical Summary | Summary of Care ---
Author Name Unknown Organization [facility] Address [address] [place] [address] Phone [phone] Care Team Providers Care Oil Expeller Name Role Phone Juliann Fernández MD Primary Care Provider + Reason for Visit * Reason Onset Date Comments Durable Medical Equipment 03/16/2023 Replac ement Autopap Setup Encounter Details Date Type Department Care Team (Late st Contact Info) Description 03/16/2023 Telephone Sleep Disorders, [address] [address] Raymond Teresa, SPECIAL SYSTEMS TECHNICIAN Durable Medical Equipment (Replacement Aut... Allergies Active Allergy Reactions Criticality Noted Date Comments Penicillins 05/04/2007 Vomiting hives documented as of this encounter (statuses as of 03/22/2023) Medications Medication Sig Dispensed Refills Start Date [...] as of this encounter (statuses as of 03/22/2023) Active Problems Problem Noted Date Diagnosed Date [...] as of this encounter (statuses as of 03/22/2023) Resolved Problems Problem Noted Date Diagnosed Date Resolved Date Hypersomnolence disorder 01/27/2020 Morbid obesity due to excess calories 12/25/2019 12/25/2019 Reflux esophagitis 0 Dyslipidemia, goal LDL below 100 03/21/2013 Hyperlipidemia with target LDL less than 130 09/20/2013 Overview: ICD-10 update of inactive term documented as of this encounter (statuses as of 03/22/2023) Immunizations Name Administration Dates Next Due COVID-19 mRNA, LNP-s, No Pre serve, 2-Dose Series (Moderna) 05/09/2020,04/07/2020 COVID-19, mRNA, LNP-s, PF, B ooster, 100mcg/0.5mg (Moderna) 06/21/2021,01/06/2021 Covid-19, Mrna, Lnp-s, Pf, B ivalent, 30 Mcg, IM, 12 yrs and above (Pfizer) 12/02/2021 DTaP Dipth/Tet/Acell Pertussis (Infanrix), Peds 08/11/2001 Hepatitis B, 20+ yrs 08/02/2022 Pneumococcal Conjugate Vacci ne, 20-valent ([id number]) 08/02/2022 Seasonal Influenza, PF, 6 M & [...] encounter Miscellaneous Notes * Telephone Encounter - Sapna Celaya CRNP - 03/22/2023 12:22 PM EST Noted * Telephone Encounter - Raymond Teresa RRT - 03/17/2023 11:36 AM EST Liu Alejo. Per the billing department " Pt is Not Eligible for a replacement PAP device until 03/06 - Setup 03/02/20" Davin Solitario * Telephone Encounter - Michelle Raymundo OSA - 03/17/2023 11:25 AM EST Davin Pt is Not Eligible for a replacement PAP device until 03/06 - Setup 03/02/20 * Telephone Encounter - Raymond Teresa RRT - 03/16/2023 1:35 PM EST Nelli/Chani/Michelle, ?? Received orders to setup [place] on a replacement autoPAP unit. Davin Solitario documented in this encounter Plan of Treatment Upcoming Encounters Date Type Department Care Team (Late st Contact Info) Description 08/30/2023 8:15 AM EDT Office Visit Urology Sophia Helm [address] [place] [address] Smooth Rodriguez Jr., MD [address] [place] [address] 09/19/2023 10:30 AM EDT Telemedicine Sleep Disorders Ctr [facility] [address] [place] [phone] Sapna Celaya CRNP [address] [place] [address] Scheduled Procedures Name Priority Associated Diagnoses Date/Ti [...] Additional history exists Lipid Panel 08/03/2027 08/02/2022, 052 , 12/25/2019, Additional history exists DTaP,Tdap,and Td Vaccines [...] this encounter Medical Devices Implanted Type Area Jacquard Loom Carpet Weaver Device Identifier Shelf Expiration Date Model / Serial / Lot Clip Quick 2.8mm 230cm - [id number] Implanted:Qty: 1 on 04/20/2020 by Nawaf Snyder DO at ENDOSCOPY [facility] [employer] 06/10/2022 HX-202UR.A / / documented as of this encounter Care Teams Oil Expeller Relationship Specialty Start Date End Date Juliann Fernández MD [address] [facility] [place] [address] PCP - General 05/04/07 documented as of this encounter
--- OUTSIDE RECORDS SUMMARY | 2023-04-19 14:18 | External Medical Summary | Summary of Care ---
Author Name Unknown Organization [facility] Address [address] [place] [address] Phone [phone] Care Team Providers Care Print Shop Stenographer Name Role Phone Juliann Fernández MD Primary Care Provider + Reason for Visit * Reason Onset Date Comments Durable Medical Equipment 03/16/2023 Replac ement Autopap Setup Encounter Details Date Type Department Care Team (Late st Contact Info) Description 03/16/2023 Telephone Sleep Disorders, [address] [address] Raymond Teresa, GLYCERIN OPERATOR Durable Medical Equipment (Replacement Aut... Allergies Active [...] yrs 08/02/2022 Pneumococcal Conjugate Vacci ne, 20-valent ([id number]) 08/02/2022 Seasonal Influenza, PF, 6 M & [...] Nelli/Chani/Michelle, ?? Received orders to setup Chino Coreas on a replacement autoPAP unit. Kassi, Davin documented in this encounter Plan of Treatment Upcoming Encounters Date Type Department Care Team (Late st Contact Info) Description 08/30/2023 8:15 AM EDT Office Visit Urology Sophia Helm [address] [place] [address] Smooth Rodriguez Jr., MD [address] [place] [address] 09/19/2023 10:30 AM EDT Telemedicine Sleep Disorders Ctr [facility] [address] [place] [phone] Sapna Celaya CRNP [address] [place] [address] Scheduled Procedures Name Priority Associated Diagnoses Date/Ti [...] this encounter Medical Devices Implanted Type Area Proprietary Trader Device Identifier Shelf Expiration Date Model / Serial / Lot Clip Quick 2.8mm 230cm - [id number] Implanted:Qty: 1 on 04/20/2020 by Nawaf Snyder DO at ENDOSCOPY [facility] [employer] 06/10/2022 [id number].A / / documented as of this encounter Care Teams Print Shop Stenographer Relationship Specialty Start Date End Date Juliann Fernández MD [address] [place] [address] PCP - General 05/04/07 documented as of this encounter
--- OUTSIDE RECORDS SUMMARY | 2023-04-19 14:18 | External Medical Summary | Summary of Care ---
Author Name Unknown Organization [facility] Address [address] [facility] [place] [address] Phone [phone] Care Team Providers Care Cylinder Batcher Name Role Phone Juliann Fernández MD Primary Care Provider + Reason for Visit * Reason Comments Follow Up Video visit return . PRESLEY. CPAP. Had recall on CPAP was bowser and patient doesn't feel it is safe even though it was recalled. Would like information on how to get new machine. Encounter Details Date Type Department Care Team (Late st Contact Info) Description 03/16/2023 1:00 PM EST Telemedicine Sleep Disorders Ctr [facility] [address] [facility] [place] [phone] Sapna Celaya CRNP [address] [facility] [place] [address] Obstructive sleep apnea*; Restless legs syndrome (RLS) Allergies Active Allergy Reactions Criticality Noted Date Comments Penicillins 05/04/2007 Vomiting hives documented as of this encounter (statuses as of 03/16/2023) Medications Medication Sig Dispensed Refills Start Date [...] as of this encounter (statuses as of 03/16/2023) Active Problems Problem Noted Date Diagnosed Date [...] as of this encounter (statuses as of 03/16/2023) Resolved Problems Problem Noted Date Diagnosed Date Resolved Date Hypersomnolence disorder 01/27/2020 Morbid obesity due to excess calories 12/25/2019 12/25/2019 Reflux esophagitis 0 Dyslipidemia, goal LDL below 100 03/21/2013 Hyperlipidemia with target LDL less than 130 09/20/2013 Overview: ICD-10 update of inactive term documented as of this encounter (statuses as of 03/16/2023) Immunizations Name Administration Dates Next Due COVID-19 mRNA, LNP-s, No Pre serve, 2-Dose Series (Moderna) 05/09/2020,04/07/2020 COVID-19, mRNA, LNP-s, PF, B ooster, 100mcg/0.5mg (Moderna) 06/21/2021,01/06/2021 Covid-19, Mrna, Lnp-s, Pf, B ivalent, 30 Mcg, IM, 12 yrs and above (Pfizer) 12/02/2021 DTaP Dipth/Tet/Acell Pertussis (Infanrix), Peds 08/11/2001 Hepatitis B, 20+ yrs 08/02/2022 Pneumococcal Conjugate Vacci ne, 20-valent ([id number]) 08/02/2022 Seasonal Influenza, PF, 6 M & [...] on file documented as of this encounter Last Filed Vital Signs Vital Sign Reading Time Taken Comments Blood Pressure - - Pulse - - Temperature - - Respiratory Rate - - Oxygen Saturation - - Inhaled Oxygen Concentration - - Weight 136.1 kg (300 lb) 03/16/2023 12:47 PM EST Height 182.9 cm (6') 03/16/2023 12:47 PM EST Body Mass Index 40.69 03/16/2023 12:47 PM EST documented in this encounter Patient Instructions * Patient Instructions* Sapna Celaya CRNP - 03/16/2023 1:43 PM EST Continue use of CPAP to include all periods of sleep. Recommended total sleep time for adults is 7-9 hours. Reminder to clean CPAP supplies weekly and change supplies as needed. Work at making lifestyle changes to loss weight, as weight loss often results in improvement of sleep disordered breathing. Daily exercise has been shown to improve sleep quality. Avoid driving or engaging in any activity that requires full alertness if feeling sleepy, drowsy orotherwise impaired. documented in this encounter Progress Notes * Sapna Celaya CRNP - 03/16/2023 1:03 PM EST Patient location: HOME. I was in a hospital or clinic location. After connecting through televideo,patient was verified with two unique identifiers. Patient (or authorized legal guest services representative) was then informed that this was a Telemedicine visit and being conducted confidentially over secure lines. Methods to assure confidentiality were taken. Patient acknowledged consent and understanding of pr ivacy and security of the Telemedicine visit. The patient agreed to participate. [facility] Chino Coreas is a 47 year old male with medical history including prediabetes, obesity, dyslipidemia, depression who is seen today for yearly follow-up of PRESLEY treated on CPAP and RLS. Initially was evaluated 12/24/2019 with snoring, daytime sleepiness, RLS sxs. [place] 10, FOSQ 26. - PSG 01/15/2020: AHI 26, supine AHI 52, SpO2 shahab 88%, time <89% 0.1 min, PLMI 42, BMI 43.5 , wt 320 lb - Pressures increased at the last visit 04/2022 Interim History: CPAP used nightly. Device isn't always turning on and he is very concerned about ongoing reports inthe news about potential risks with using a refurbished Carl unit. A non Carl replacement device is being requested. Notes RLS 3x/week occurring prior to getting into bed but them impacts him at bedtime. Otherwise, he is happy with his sleep quality. Caffeine includes 1 cup/am. With diagnosis of prediabetes, lifestyle changes have been made resulting in weight loss. Wt now 300 lb. Compliance Data: 30 day report ending 03/15/2023 % total days used: 100 % days used > 4 hours: 100 Average hours per day used: 6 hours 44 mins Large leak: 0 mins rAHI: 0.8 Pressures: mean 10.5, p90% 11.6 Equipment: DME Provider: GSS Device: [employer] Settin-20 cmH20 Interface Type: FFM [place] Sleepiness Scale Question 03/16/2023 12:43 PM EST - Filed by Patient What is the chance you will doze off in the following situation? Sitting and reading No chance of dozing Watching TV No chance of dozing Sitting inactive in a public place, such as a theater or meeting No chance of dozing As a passenger in a car for an hour without a break No chance of dozing Lying down to rest in the afternoon when circumstances permit Slight chance of dozing When sitting and talking to someone No chance of dozing When sitting quietly after lunch without alcohol No chance of dozing In a car, while stopped for a few minutes in traffic No chance of dozing Score (range: 0 - 24) 1 Restless Leg Syndrome Rating Scale Question 03/16/2023 12:47 PM EST - Filed by Patient Please complete the following questions. In the past week... Overall, how would you rate the RLS discomfort in your legs or arms? Moderate Overall, how would you rate the need to move around because of your RLS symptoms? Moderate How severe was your sleep disturbance due to your RLS symptoms? Moderate How severe was your tiredness or sleepiness during the day due to your RLS symptoms? None How severe was your RLS as a whole? Moderate Overall, how severe was the impact of your RLS symptoms on your ability to carry out your daily affairs, for example, carrying out a satisfactory family, home, social, school, or work? None How severe was your mood disturbance due to your RLS symptoms, for example, angry, depressed, sad, anxious, or irritable? Moderate In the past week, Overall, how much relief of your RLS arm or leg discomfort did you get from moving around? Moderaterelief How often did you get RLS symptoms? Often (4 to 5 days in 1 week) When you had RLS symptoms, how severe were they on average? 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 Dyslipidemia, goal LDL below 130 E78.5 Mild single current episode of major depressive disorder (HCC) F32.0 RLS (restless legs syndrome) G25.81 PRESLEY (obstructive sleep apnea) G47.33 Body mass index (BMI) of 40.0 to 44.9 in adult (HCC) Z68.41 Prediabetes R73.03 Current Medications: Outpatient Medications Marked as Taking for the 03/16/23 encounter (Telemedicine) with Sapna Celaya CRNP Medication Sig dexAMETHasone 0.75 MG Oral Tablet (Decadron) Take 1 tablet by mouth 3 times a day until gone buPROPion HCl ER (SR) 150 MG Oral Tablet Extended Release 12 Hour (Wellbutrin SR) TAKE ONE TABLET BY MOUTH IN THE MORNING AND ONE TABLET BEFORE BEDTIME busPIRone HCl 30 MG Oral Tablet TAKE 1/2 TABLET BY MOUTH IN THE MORNING AND 1/2 TABLET BEFORE BEDTIME Lovastatin 40 MG Oral Tablet TAKE 2 TABLETS BY MOUTH BEFORE BEDTIME Sertraline HCl 25 MG Oral Tablet (Zoloft) TAKE ONE TABLET BY MOUTH IN THE MORNING ALONG WITH [id number] MG TOTAL DAILY DOSE OF 75MG Sertraline HCl 50 MG Oral Tablet (Zoloft) TAKE ONE TABLET BY MOUTH IN THE MORNING ALONG WITH 25 MG ( TOTAL DOSE OF 75MG.) CPAP every night at bedtime. Physical Exam: Constitutional: Alert, oriented and in no acute distress Skin: No abnormal mask markings on face Chest: Normal respiratory effort at rest Neuro: Fluent speech Psych: Appropriate mood and affect. Assessment & Plan: Obstructive sleep apnea (Primary) Moderate sleep apnea based on AHI criteria. Compliant, therapeutic and benefiting with PAP treatment. - CONT AIRWAY PRESSURE DEVICE Replacement CPAP requested as his unit is obsolete and not working appropriately. Continue autoPAP 10-20 cm H2O, flex 3 Restless legs syndrome (RLS) RLS Severity Index 17 (moderate) Symptoms about 3 days a week. Non pharmacological measures for RLS include warm baths, massage, light exercise, elevating extremities, compression stockings, or weighted blanket. Ferritin, transferrin have been within normal range - not on supplemental iron Continues on SSRI - discussed this can cause or worsen RLS. He should continue this treatment. Consider prn gabapentin - declined today Follow Up: Return in about 6 months (around 09/19/2023) for televideo on replacement CPAP DEANN [facility] I spent a total of 40-54 minutes (exact time 40 mins) on the date of service in preparation, delivery, and documentation of the care provided to Chino Coreas excluding any time spent in the performance of separately billed services. documented in this encounter Nursing Notes * Yuliya Garcia LPN - 03/16/2023 12:48 PM EST Chief Complaint Patient presents with Follow Up Video visit return . PRESLEY. CPAP. Had recall on CPAP was bowser and patient doesn't feel it is safeeven though it was recalled. Would like information on how to get new machine. DME:[email or web address]. [place] Sleepiness Scale Question 03/16/2023 12:43 PM EST - Filed by Patient What is the chance you will doze off in the following situation? Sitting and reading No chance of dozing Watching TV No chance of dozing Sitting inactive in a public place, such as a theater or meeting No chance of dozing As a passenger in a car for an hour without a break No chance of dozing Lying down to rest in the afternoon when circumstances permit Slight chance of dozing When sitting and talking to someone No chance of dozing When sitting quietly after lunch without alcohol No chance of dozing In a car, while stopped for a few minutes in traffic No chance of dozing Score (range: 0 - 24) 1 Restless Leg Syndrome Rating Scale Question 03/16/2023 12:47 PM EST - Filed by Patient Please complete the following questions. In the past week... Overall, how would you rate the RLS discomfort in your legs or arms? Moderate Overall, how would you rate the need to move around because of your RLS symptoms? Moderate How severe was your sleep disturbance due to your RLS symptoms? Moderate How severe was your tiredness or sleepiness during the day due to your RLS symptoms? None How severe was your RLS as a whole? Moderate Overall, how severe was the impact of your RLS symptoms on your ability to carry out your daily affairs, for example, carrying out a satisfactory family, home, social, school, or work? None How severe was your mood disturbance due to your RLS symptoms, for example, angry, depressed, sad, anxious, or irritable? Moderate In the past week, Overall, how much relief of your RLS arm or leg discomfort did you get from moving around? Moderaterelief How often did you get RLS symptoms? Often (4 to 5 days in 1 week) When you had RLS symptoms, how severe were they on average? Moderate (1 to 3 hours per 24 hours) Score (range: 1 - 40) 17 (Moderate) Flu Vaccine Questionnaire Question 03/16/2023 12:47 PM EST - Filed by Patient Get your flu shot at your upcoming appointment. Please select one of the options below. I already received my flu shot documented in this encounter Plan of Treatment Upcoming Encounters Date Type Department Care Team (Late st Contact Info) Description 08/30/2023 8:15 AM EDT Office Visit Urology Sophia Helm [address] [place] [address] Smooth Rodriguez Jr., MD [address] [place] [address] 09/19/2023 10:30 AM EDT Telemedicine Sleep Disorders Ctr [facility] [address] [place] [phone] Sapna Celaya CRNP [address] [place] [address] Scheduled Procedures Name Priority Associated Diagnoses Date/Ti [...] Additional history exists Lipid Panel 08/03/2027 08/02/2022, 2 , 12/25/2019, Additional history exists DTaP,Tdap,and Td [...] this encounter Medical Devices Implanted Type Area Contour Grinder Device Identifier Shelf Expiration Date Model / Serial / Lot Clip Quick 2.8mm 230cm - [id number] Implanted:Qty: 1 on 04/20/2020 by Nawaf Snyder DO at ENDOSCOPY [facility] 06/10/2022 [id number]-202UR.A / / documented as of this encounter Visit Diagnoses Diagnosis Obstructive sleep apnea- Primary Obstructive sleep apnea (adult) (pediatric) Restless legs syndrome (RLS) documented in this encounter Care Teams Cylinder Batcher Relationship Specialty Start Date End Date Juliann Fernández MD [address] [place] [address] PCP - General 05/04/07 documented as of this encounter
--- OUTSIDE RECORDS SUMMARY | 2023-04-19 14:18 | External Medical Summary | Summary of Care ---
Author Name Unknown Organization [facility] Address [address] [facility] [place] [address] Phone [phone] Care Team Providers Care Court Attendant Name Role Phone Juliann Fernández MD Primary Care Provider + Encounter Details Date Type Department Care Team (Late st Contact Info) Description 03/16/2023 Telephone Pulmonary Medicine, [facility] [place] [address] Sapna Celaya CRNP [address] [place] [address] Allergies Active Allergy Reactions Criticality Noted Date [...] yrs 08/02/2022 Pneumococcal Conjugate Vacci ne, 20-valent ([id number]) 08/02/2022 Seasonal Influenza, PF, 6 M & [...] money to buy more. Never true 07/22/19 Within the past 12 months, t he [...] encounter Miscellaneous Notes * Telephone Encounter - Nghia Rivera OSA - 03/16/2023 1:33 PM EST DME order placed for GSS documented in this encounter Plan of Treatment Upcoming Encounters Date Type Department Care Team (Late st Contact Info) Description 08/30/2023 8:15 AM EDT Office Visit Urology Sophia Helm [address] [place] [address] Somoth Rodriguez Jr., MD [address] [place] [address] Scheduled Procedures Name Priority Associated Diagnoses Date/Ti [...] this encounter Medical Devices Implanted Type Area Intake Coordinator Device Identifier Shelf Expiration Date Model / Serial / Lot Clip Quick 2.8mm 230cm - [id number] Implanted:Qty: 1 on 04/20/2020 by Nawaf Snyder DO at ENDOSCOPY [facility] [employer] [facility] 06/10/2022 [id number] / / documented as of this encounter Care Teams Court Attendant Relationship Specialty Start Date End Date Juliann Fernández MD [address] [place] [address] PCP - General 05/04/07 documented as of this encounter
--- OUTSIDE RECORDS SUMMARY | 2023-04-19 14:18 | External Medical Summary | Summary of Care ---
Author Name Unknown Organization [facility] Address [address] [place] [address] Phone [phone] Care Team Providers Care Making Department Preparer Name Role Phone Juliann Fernández MD Primary Care Provider + Reason for Visit * Reason Onset Date Comments Durable Medical Equipment 03/16/2023 Replac ement Autopap Setup Encounter Details Date Type Department Care Team (Late st Contact Info) Description 03/16/2023 Telephone Sleep Disorders, [address] [address] Raymond Teresa, EXECUTIVE OFFICE MANAGER Durable Medical Equipment (Replacement Aut... Allergies Active [...] yrs 08/02/2022 Pneumococcal Conjugate Vacci ne, 20-valent ([id number]) 08/02/2022 Seasonal Influenza, PF, 6 M & [...] [address] [place] [address] Smooth Rodriguez Jr., MD [address] [place] [address] Scheduled Procedures Name Priority Associated Diagnoses Date/Ti [...] this encounter Medical Devices Implanted Type Area Support Merchandiser Device Identifier Shelf Expiration Date Model / Serial / Lot Clip Quick 2.8mm 230cm - [id number] Implanted:Qty: 1 on 04/20/2020 by Nawaf Snyder DO at ENDOSCOPY [facility] [employer] 06/10/2022 [id number]-202UR.A / / documented as of this encounter Care Teams Making Department Preparer Relationship Specialty Start Date End Date Juliann Fernándze MD [address] [place] [address] PCP - General 05/04/07 documented as of this encounter
--- OUTSIDE RECORDS SUMMARY | 2023-04-19 14:18 | External Medical Summary | Summary of Care ---
Author Name Unknown Organization [facility] Address [address] [facility] [place] [address] Phone [phone] Care Team Providers Care Embedded Engineer Name Role Phone Juliann Fernández MD Primary Care Provider + Encounter Details Date Type Department Care Team (Late st Contact Info) Description 01/31/2023 Telephone General Internal Medicine [facility] [address] [place] [id number] Juliann Fernández MD [address] [facility] [address] Allergies Active Allergy Reactions Criticality Noted Date Comments Penicillins 05/04/2007 Vomiting hives documented as of this encounter (statuses as of 02/01/2023) Medications Medication Sig Dispensed Refills Start Date [...] as of this encounter (statuses as of 02/01/2023) Active Problems Problem Noted Date Diagnosed Date [...] as of this encounter (statuses as of 02/01/2023) Resolved Problems Problem Noted Date Diagnosed Date Resolved Date Hypersomnolence disorder 01/27/2020 Morbid obesity due to excess calories 12/25/2019 12/25/2019 Reflux esophagitis 0 Dyslipidemia, goal LDL below 100 03/21/2013 Hyperlipidemia with target LDL less than 130 09/20/2013 Overview: ICD-10 update of inactive term documented as of this encounter (statuses as of 02/01/2023) Immunizations Name Administration Dates Next Due COVID-19 mRNA, LNP-s, No Pre serve, 2-Dose Series (Moderna) 05/09/2020,04/07/2020 COVID-19, mRNA, LNP-s, PF, B ooster, 100mcg/0.5mg (Moderna) 06/21/2021,01/06/2021 Covid-19, Mrna, Lnp-s, Pf, B ivalent, 30 Mcg, IM, 12 yrs and above (Pfizer) 12/02/2021 DTaP Dipth/Tet/Acell Pertussis (Infanrix), Peds 08/11/2001 Hepatitis B, 20+ yrs 08/02/2022 Pneumococcal Conjugate Vacci ne, 20-valent ([id number]) 08/02/2022 SEASONAL INFLUENZA, PF, 6 M & [...] [address] [place] [address] Smooth Rodriguez Jr., MD [address] [place] [address] Scheduled Procedures Name Priority Associated Diagnoses Date/Ti [...] this encounter Medical Devices Implanted Type Area Pole Peeling Machine Operator Device Identifier Shelf Expiration Date Model / Serial / Lot Clip Quick 2.8mm 230cm - [id number] Implanted:Qty: 1 on 04/20/2020 by Nawaf Snyder DO at ENDOSCOPY [facility] [employer] [facility] 06/10/2022 [id number]-202UR.A / / documented as of this encounter Care Teams Embedded Engineer Relationship Specialty Start Date End Date Juliann Fernández MD [address] [place] [address] [place] [address] PCP - General 05/04/07 documented as of this encounter
--- OUTSIDE RECORDS SUMMARY | 2023-04-19 14:18 | External Medical Summary | Summary of Care ---
Author Name Unknown Organization [facility] Address [address] [place] [address] Phone [phone] Care Team Providers Care Psychologist Military Personnel Name Role Phone Juliann Fernández MD Primary Care Provider + Reason for Visit * Reason Onset Date Comments Durable Medical Equipment 03/16/2023 Replac ement Autopap Setup Encounter Details Date Type Department Care Team (Late st Contact Info) Description 03/16/2023 Telephone Sleep Disorders, [address] [address] Raymond Teresa, MANAGER CRITICAL CARE UNIT Durable Medical Equipment (Replacement Aut... Allergies Active [...] yrs 08/02/2022 Pneumococcal Conjugate Vacci ne, 20-valent ([id number]) 08/02/2022 Seasonal Influenza, PF, 6 M & [...] encounter Miscellaneous Notes * Telephone Encounter - Michelle Raymundo OSA - 03/17/2023 11:25 AM EST Davin Pt is Not Eligible for a replacement PAP device until 03/06 - Setup 03/02/20 * Telephone Encounter - Raymond Teresa RRT - 03/16/2023 1:35 PM EST Nelli/Chani/Michelle, ?? Received orders to setup Chino Coreas on a replacement autoPAP unit. Davin Solitario documented in this encounter Plan of Treatment Upcoming Encounters Date Type Department Care Team (Late st Contact Info) Description 08/30/2023 8:15 AM EDT Office Visit Urology Sophia Helm [address] [place] [address] Smooth Rodriguez Jr., MD [address] [place] [address] 09/19/2023 10:30 AM EDT Telemedicine Sleep Disorders [facility]tr [facility] [address] [facility] [place] [phone] Sapna Celaya CRNP [address] [place] [address] Scheduled Procedures Name Priority Associated Diagnoses Date/Ti me COLONOSCOPY FLEXIBLE PROXIMA L DIAGNOSTIC Recall Family history of colon cancer Health Maintenance Due Date Last Done Comments Hepatitis B (2 of 3 - 19+ 3-dose series) 08/30/2022 08/02/2022 COVID-19 Vaccine (2022-24 season) 2022 12/02/2021, 06/21/2021, 01/06/2021, Additional history [...] this encounter Medical Devices Implanted Type Area Day Care Home Provider Device Identifier Shelf Expiration Date Model / Serial / Lot Clip Quick 2.8mm 230cm - [id number] Implanted:Qty: 1 on 04/20/2020 by Nawaf Snyder DO at ENDOSCOPY [facility] [employer] 06/10/2022 [id number]-202UR.A / / documented as of this encounter Care Teams Psychologist Military Personnel Relationship Specialty Start Date End Date Juliann Fernández MD [address] [place] [address] PCP - General 05/04/07 documented as of this encounter
--- OUTSIDE RECORDS SUMMARY | 2023-04-19 14:18 | External Medical Summary | Summary of Care ---
Author Name Unknown Organization [facility] Address [address] [facility] [place] [address] Phone [phone] Care Team Providers Care Seat Cover Installer Name Role Phone Juliann Fernández MD Primary Care Provider + Reason for Visit * Reason Onset Date Comments Durable Medical Equipment 04/11/2023 CPAP R esupply Encounter Details Date Type Department Care Team (Late st Contact Info) Description 04/11/2023 Telephone Sleep Lab [facility] [address] [facility] [place] [address] Raymond Teresa, EQUIPMENT CLEANER Durable Medical Equipment (CPAP Resupply ) Allergies [...] yrs 08/02/2022 Pneumococcal Conjugate Vacci ne, 20-valent ([id number]) 08/02/2022 Seasonal Influenza, PF, 6 M & [...] Raymundo OSA - 04/11/2023 11:26 AM EST [facility] 134960 ALEM BS [employer] Eligible for all supplies (slimline tubing) and 3 months supply cushions and disp filters * Telephone Encounter - Raymond Teresa RRT - 04/11/2023 10:11 AM EST Contacted via: phone Requested items: All supplies Mask: Resmed [id number] Tubing: slimline Machine: Resmed Last office visit: 03/16/2023 Order date: 03/16/2023 Current insurance: [employer] [id number] Compliance data: Compliance Summary 02/23/2023 - 03/24/2023 (30 days) Percent of Days with Usage >= 4 Hours 100.0% The patient was educated on the importance of those who have a pacemaker, a defibrillator, or a cochlear implant or who's bed partner has any previously mentioned devices to NOT use headgear that utilizes magnets, per the color laboratory technician. documented in this encounter Plan of Treatment Upcoming Encounters Date Type Department Care Team (Late st Contact Info) Description 08/30/2023 8:15 AM EDT Office Visit Sophia Gann [address] [place] [address] Smooth Rodriguez Jr., MD [address] [place] [id number] 09/19/2023 10:30 AM EDT Telemedicine Sleep Disorders Ctr [facility] [address] [place] [id number] Sapna Celaya CRNP [address] [place] [address] Scheduled Procedures Name Priority Associated Diagnoses Date/Ti [...] this encounter Medical Devices Implanted Type Area Optometric Technician Device Identifier Shelf Expiration Date Model / Serial / Lot Clip Quick 2.8mm 230cm - [id number] Implanted:Qty: 1 on 04/20/2020 by Nawaf Snyder DO at ENDOSCOPY [facility] [employer] [facility] 06/10/2022 [id number] / / documented as of this encounter Care Teams Seat Cover Installer Relationship Specialty Start Date End Date Juliann Fernández MD [address] [place] [address] PCP - General 05/04/07 documented as of this encounter
--- OUTSIDE RECORDS SUMMARY | 2023-04-19 14:19 | External Medical Summary | Summary of Care ---
Author Name Unknown Organization [facility] Address [address] [facility] [place] [address] Phone [phone] Care Team Providers Care Park Ranger Name Role Phone Juliann Fernández MD Primary Care Provider + Reason for Visit * Reason Onset Date Comments Advice 01/31/2023 Appointment 01/31/2023 Encounter Details Date Type Department Care Team (Late st Contact Info) Description 01/31/2023 Telephone General Internal Medicine [facility] [address] [facility] [address] Juliann Fernández MD [address] [place] [address] Advice; Appointment Allergies Active Allergy Reactions Criticality Noted Date Comments Penicillins 05/04/2007 Vomiting hives documented as of this encounter (statuses as of 01/31/2023) Medications Medication Sig Dispensed Refills Start Date [...] as of this encounter (statuses as of 01/31/2023) Active Problems Problem Noted Date Diagnosed Date [...] as of this encounter (statuses as of 01/31/2023) Resolved Problems Problem Noted Date Diagnosed Date Resolved Date Hypersomnolence disorder 01/27/2020 Morbid obesity due to excess calories 12/25/2019 12/25/2019 Reflux esophagitis 0 Dyslipidemia, goal LDL below 100 03/21/2013 Hyperlipidemia with target LDL less than 130 09/20/2013 Overview: ICD-10 update of inactive term documented as of this encounter (statuses as of 01/31/2023) Immunizations Name Administration Dates Next Due COVID-19 mRNA, LNP-s, No Pre serve, 2-Dose Series (Moderna) 05/09/2020,04/07/2020 COVID-19, mRNA, LNP-s, PF, B ooster, 100mcg/0.5mg (Moderna) 06/21/2021,01/06/2021 Covid-19, Mrna, Lnp-s, Pf, B ivalent, 30 Mcg, IM, 12 yrs and above (Pfizer) 12/02/2021 DTaP Dipth/Tet/Acell Pertussis (Infanrix), Peds 08/11/2001 Hepatitis B, 20+ yrs 08/02/2022 Pneumococcal Conjugate Vacci ne, 20-valent ([id number]) 08/02/2022 SEASONAL INFLUENZA, PF, 6 M & [...] Telephone Encounter - Yamilka Levy OSA - 01/31/2023 3:36 PM EST My g sent 01/31 * Telephone Encounter - Rosemary Muir OSA - 01/31/2023 10:28 AM EST Patient calling in requesting an appointment with PCP for increased anxiety. Unable to find any return appointments available. Please call patient back at [phone] to schedule documented in this encounter Plan of Treatment Upcoming Encounters Date Type Department Care Team (Late st Contact Info) Description 08/30/2023 8:15 AM EDT Office Visit Urology Sophia Helm [address] [place] [address] Smooth Rodriguez Jr., MD [address] [place] [address] Scheduled Procedures Name Priority Associated Diagnoses Date/Ti [...] this encounter Medical Devices Implanted Type Area Merchant Mill Utility Worker Device Identifier Shelf Expiration Date Model / Serial / Lot Clip Quick 2.8mm 230cm - [id number] Implanted:Qty: 1 on 04/20/2020 by Nawaf Snyder DO at ENDOSCOPY [facility] [employer] [facility] 06/10/2022 [id number] / / documented as of this encounter Care Teams Park Ranger Relationship Specialty Start Date End Date Juliann Fernández MD [address] [place] [address] PCP - General 05/04/07 documented as of this encounter
[2023-04-19] MEDS ORDERED: POLYETHYLENE (MIRALAX) 17 GM PACK PO PRN (15:00)
[2023-04-19] MEDS ORDERED: ALUMINUM/MAGNESIUM SUSP 30 ML UDC PO PRN (15:00)
[2023-04-19] MEDS ORDERED: ONDANSETRON INJ 2 MG/ML 2 ML VIAL IV PRN (15:00)
[2023-04-19] MEDS ORDERED: MAGNESIUM HYDROXIDE SUSP 30 ML UDC PO PRN (15:00)
[2023-04-19] MEDS ORDERED: ACETAMINOPHEN 325 MG TAB PO PRN (15:00)
--- NOTE | 2023-04-19 15:03 | History & Physical Report ---
Date of Service April 19, 2023 Assessment & Plan (1) Pulmonary embolism: (2) Elevated troponin I level: (3) PRESLEY (obstructive sleep apnea): (4) Hyperlipidemia: Plan This is a 48-year-old male who has a significant past medical history of HLD, prediabetes, depression, PRESLEY on CPAP who presents to ED secondary to chest pain and shortness of breath that started prior to arrival. Pulmonary embolism Right heart strain admit to PCU He is otherwise hemodynamically stable and not requiring oxygen support --Chest CTA Extensive bilateral pulmonary emboli with right heart strain. --Echo: EF 60 to 65%, abnormal septal motion consistent with right ventricular pressure/volume overload. LV wall motion is otherwise normal. Right ventricle. Severely dilated with severe diffuse right ventricular hypokinesis. Significant tricuspid regurg is absent. Normal pulmonary arterial systolic pressure although 2D findings suggestive of elevated right heart filling pressures. continue IV heparin consult pulmonary Discussed with [facility] [place] triage officer and [facility] IR who feels clots to distal for IR intervention b/l venous duplex ordered No prior hx of clot, clot d/o, FH, or recent travel He does have a remote, very sedentary job for long hours Will start hypercoag w/u, pt on heparin so will not be complete will need outpatient hematology referral HLD chronic, stable continue statin PRESLEY on cpap continue HS cpap Depression continue wellbutrin, buspar mood stable DVT ppx: IV Heparin FULL CODE PCP: Dr. Juliann Fernández Dispo: admit to PCU Pt was seen and examined in collaboration with Dr. Petty, please see addendum A total of 76 minutes was spent coordinating, documenting, and providing care for this patient excluding time spent in the performance of separately billed services. This included personally viewing all current laboratories and imaging studies, medication reconciliation, outpatient chart review, and discussion with specialists. Admission and Anticipated Discharge Date Admission Date: April 19, 2023 History of Present Illness Chief Complaint: Chest pain and shortness of breath prior to arrival. Primary Care Provider: Juliann Fernández MD This is a 48-year-old male who has a significant past medical history of HLD, prediabetes, depression, PRESLEY on CPAP who presents to ED secondary to chest pain and shortness of breath that started prior to arrival. His is at bedside who also helps elicit history. He states he has been in his normal state of health until this morning. He was out walking the dog and a few minutes into the walk he developed substernal chest heaviness and difficulty breathing. He also felt very diaphoretic, lightheaded and felt like he could pass out. When he came home he rested and took 7 minutes to go away. He also states pursing this morning he woke up and was having left calf pain. He thinks maybe he injured his muscle. This has since improved. At rest he is currently not experiencing any chest pain or shortness of breath. Upon further thought he states over the last week he feels he may have been having more shortness of breath than normal. He currently has a remote job for which he sits for prolonged periods of time. He denies any recent travel, surgery, previous history of DVT/PE or family history of clotting disorder. He states over the last year he has lost 40 pounds intentionally paying more attention to diet. He denies any recent illness, fever, chills, sweats, cough, hemoptysis, URI symptoms, nausea, vomiting, abdominal pain, change in bowel or urinary habits. In ED patient had elevated D-dimer and his troponin in the 80s. Chest CTA was obtained Dribblet extensive bilateral pulmonary emboli with right heart strain. Repeat 2-hour troponin was 182.6. He was started on IV heparin. Allergies Allergy/AdvReac Type Severity Reaction Status Date / Time Penicillins Allergy Unknown ? Unverified 11/30/15 08:07 Home Medications Medication Instructions Recorded Confirmed Type bupropion HCl 150 mg tablet,12 hr 150 mg PO [facility] 04/19/23 04/19/23 History sustained-release buspirone 30 mg tablet 15 mg PO [facility] 04/19/23 04/19/23 History lovastatin 40 mg tablet 80 mg PO HS 04/19/23 04/19/23 History sertraline 25 mg tablet 25 mg PO DAILY 04/19/23 04/19/23 History sertraline 50 mg tablet 50 mg PO DAILY 04/19/23 04/19/23 History Past Med/Surg History Medical History Depression Pre-diabetes PRESLEY (obstructive sleep apnea) Hyperlipidemia Surgical History (Updated 04/19/23 @ 13:51 by Sue Pond PA-C) History of esophagogastroduodenoscopy (EGD) H/O colonoscopy No significant past surgical history Family History (Updated 04/19/23 @ 15:01 by Sue Pond PA-C) Denies family history of Clotting disorder Social History (Updated 04/19/23 @ 15:06 by Sue Pond PA-C) Smoking Status: Never smoker Hx Alcohol Use: No Hx Substance Use: No Preferred Language: Turkish marital status: Current Living Situation: Spouse current occupational status: employed Feels Safe at Home: Yes Review of Systems Review of Systems: All systems reviewed & are unremarkable except as noted in HPI & below Physical Exam Physical Exam: Constitutional: WD/WN, vitals as above, NAD, sitting up in bed, pleasant, conversing easily Head: Normocephalic, Atraumatic Eyes: PERRL, conjunctivae normal, anicteric sclerae ENMT: external ear and nose normal, oropharynx normal Neck: trachea midline, no thyromegaly normal visual inspection Respiratory: normal respiratory effort, lungs clear to auscultation, no wheeze, rales, rhonchi. Normal insp/exp effort, no accessory muscle use Cardiovascular: RRR, no murmur, no edema Vessels: no JVD or carotid bruit Chest: normal inspection of chest Abdomen: normal bowel sounds, protuberant abd, soft, nontender, no hepatosplenomegaly Musculoskeletal: no cyanosis or clubbing, extremities motor strength 5/5 Skin: no rashes, warm and dry normal turgor Neurologic: PERRL, EOMI, accommodation nl, no face palsy, no dysarthria CN's II-XI intact bilaterally and moves all extremities Psychiatric: A+Ox3, euthymic affect Lymphatic: no cervical or axillary lymphadenopathy : deferred Results & Data Results & Data Vital Signs (Past 12 Hours) Vital Signs Temp Pulse Pulse Resp BP BP Pulse Ox 04/19/23 14:00 92 H 20 98 04/19/23 14:00 138/90 04/19/23 13:30 117/85 04/19/23 13:30 91 H 18 97 04/19/23 13:28 93 H 04/19/23 13:27 93 H 19 97 04/19/23 13:23 91 H 18 132/88 96 04/19/23 11:40 95 04/19/23 11:40 04/19/23 10:01 102 H 22 95 04/19/23 10:01 95 04/19/23 09:52 36.4 C L 107 H 18 118/86 95 O2 Del Method 04/19/23 14:00 04/19/23 14:00 04/19/23 13:30 04/19/23 13:30 04/19/23 13:28 04/19/23 13:27 04/19/23 13:23 Room Air 04/19/23 11:40 Room Air 04/19/23 11:40 Room Air 04/19/23 10:01 Room Air 04/19/23 10:01 Room Air 04/19/23 09:52 Room Air Diagnostic Findings Chest X-Ray 04/19/23 10:01 XR chest 1V not portable HISTORY: Chest pain, nonspecific COMPARISON: Chest 01/12/2012. FINDINGS: The lungs are clear. Cardiac silhouette is normal in size. No pleural effusions. No pneumothorax. IMPRESSION: No acute process. ACT 112: Negative or not required by law. Electronically signed by: Charles Conde M.D. 04/19/2023 11:04 AM Chest CTA 04/19/23 12:18 CT angio chest PE protocol CT DOSE: 1062.74 mGy.cm HISTORY: 48 years-old Male with PE. Acute shortness of breath TECHNIQUE: Multiple CTA images of the chest were obtained after the intravenous administration of 116 ml Optiray. Coronal and sagittal MIPS were obtained from the axial data set and were submitted for review. All measurements were obtained according to NASCET criteria. A dose lowering technique was utilized adhering to the principles of ALARA. COMPARISON: Chest radiograph of same day, CTA chest 01/12/2012 FINDINGS: CTA: Heart is normal in size. No pericardial effusion. Unremarkable thoracic aorta. Opacified venous collaterals of the upper midline chest wall. There is straightening of the intraventricular septum with dilation of the right heart. There is a large amount of bilateral lobar, segmental and subsegmental pulmonary emboli. No sagittal pulmonary emboli identified. CT CHEST: No pneumothorax, pleural effusion, airspace consolidation or pulmonary edema. Central airways are patent. Unremarkable thyroid. No lymphadenopathy. No acute upper abdominal abnormality. Unremarkable soft tissues. No acute fracture. IMPRESSION: 1. Extensive bilateral pulmonary emboli with right heart strain. 2. No pleural effusion, lymphadenopathy or airspace consolidation. ACT 112: Negative or not required by law. The above report was generated using voice recognition software. It may contain grammatical, syntax or spelling errors. Electronically signed by: Narayan Quiñones M.D. 04/19/2023 1:04 PM Echo: EF 60 to 65%, abnormal septal motion consistent with right ventricular pressure/volume overload. LV wall motion is otherwise normal. Right ventricle. Severely dilated with severe diffuse right ventricular hypokinesis. Significant tricuspid regurg is absent. Normal pulmonary arterial systolic pressure although 2D findings suggestive of elevated right heart filling pressures. Medications Administered Medication List Heparin Sodium/Dextrose (Heparin Sodium/Dextrose) 25,000 units in 500 mls @ 34 mls/hr IV .[id number] [facility]; Protocol Stop: 05/19/23 13:14 Last Admin: 04/19/23 13:19 Dose: 1,700 units/hr, 34 mls/hr Documented By: NICKI Co-signed By: KALYN Discontinued Medications Aspirin (Aspirin Chew 324 Mg) 324 mg PO NOW STA Stop: 04/19/23 11:26 Last Admin: 04/19/23 11:43 Dose: 324 mg Documented By: RAE Heparin Sodium (Porcine) (Heparin Sod (Porcine) 1000 Unit/Ml) 8,000 units IV NOW ONE Stop: 04/19/23 13:16 Last Admin: 04/19/23 13:20 Dose: 8,000 units Documented By: NICKI Co-signed By: KALYN Ioversol (Optiray 320 125ml) 116 ml IV ONCE ONE Stop: 04/19/23 12:51 Last Admin: 04/19/23 12:48 Dose: 116 ml Documented By: GRACE ECG Rate (beats per minute): 104 Rhythm: sinus tachycardia Additional Comments: I have independently reviewed and interpreted patient's admitting EKG which revealed: 104 sinus tach Code Status & VTE Plan Code Status FULL CODE VTE Prophylaxis Plan VTE Prophylaxis will be ordered: No Supervising Physician Co-Signing Physician Notes I have seen and examined the patient and have discussed the case with the provider above. I have reviewed the advanced practitioner's documentation, and I agree with, and take responsibility for that plan of care. 48-year-old patient presents with acute PE. Initial chest heaviness and shortness of breath is improved from initial presentation. There is no clear provocation for this PE and he has no history of blood clot in himself or in his family. He takes no medications that could precipitate a blood clot. He reports a recent colonoscopy for screening for colon cancer. He does report 2-3 nights of night sweats that were nonspecific with no unintentional weight loss recently and no other B symptoms. He has no concerning lymphadenopathy on physical exam and no lymphadenopathy seen in CT of the chest. Extensive bilateral pulmonary emboli with heart right heart strain was confirmed by Doppler. As noted above, this was reviewed with [facility] interventional radiologist who declined transfer given the clots were too distal for IR intervention. Partial hypercoagulable workup is pending as heparin has already been started. Follow-up with hematology strongly recommended within the next 3 months. This was discussed with he and his who verbalized understanding with intent to comply. On exam he is well-katt shed well-developed and in no acute distress. He is not requiring oxygen and is hemodynamically stable. Lungs are clear to auscultation bilaterally. Cardiac exam reveals S1-S2 heard with regular rate and rhythm and no evidence of murmurs gallops or rubs. He has no peripheral edema. Abdomen is soft nontender nondistended. He has no gross focal neuromuscular deficits. Initial workup in the ER was reviewed including CTA of the chest, chest x-ray, lab work, EKG and echocardiogram. Agree with continuation of heparin with likely transition to DOAC such as apixaban tomorrow. Appreciate pulmonology evaluation and further recommendations. DO Jovanny (1) Pulmonary embolism Acute cor pulmonale presence: with acute cor pulmonale Chronicity: acute Pulmonary embolism type: unspecified Qualified Code(s): I26.09 - Other pulmonary embolism with acute cor pulmonale
[2023-04-19 20:01] LABS: ANTI-Xa, UFH(UnfractionatedHep 0.43 IU/ml (0.3-0.7)
[2023-04-19] MEDS: buPROPion SR 150 MG TABCR PO SCH (20:20)
[2023-04-19] MEDS: LOVASTATIN 20 MG TAB PO SCH (20:20)
[2023-04-19] MEDS: busPIRone 15 MG TAB PO SCH (20:20)
--- NOTE | 2023-04-20 03:11 | Ultrasound Report ---
Exam(s): US VENOUS BILATERAL LOWER EXTREMITIES EXAM: US Duplex Bilateral Lower Extremities Veins CLINICAL HISTORY: calf pain. TECHNIQUE: Real-time duplex ultrasound scan of the bilateral lower extremity veins integrating B-mode two-dimensional vascular structure, Doppler spectral analysis, color flow Doppler imaging and compression. COMPARISON: No relevant prior studies available. FINDINGS: Right deep veins: Unremarkable. No DVT in the right common femoral, femoral, proximal deep femoral or popliteal veins. The veins demonstrate normal color flow, are normally compressible, with normal phasic flow and/or augmentation response. The interrogated calf veins are patent. Right superficial veins: Unremarkable. No thrombus in the saphenofemoral junction. Left deep veins: No DVT in the left common femoral, proximal deep femoral or femoral veins. Echogenic material noted in the left popliteal vein, which is only partially compressible and demonstrates partial filling defect and color flow imaging. There is occlusion of the left posterior tibial veins also noted. The remaining calf veins are patent. Left superficial veins: Unremarkable. No thrombus in the saphenofemoral junction. Soft tissues: No acute findings. No popliteal cyst. IMPRESSION: 1. Findings noted within the distal left popliteal vein, consistent with partially occlusive thrombus. There is occlusion of the left posterior tibial veins also noted. 2. No proximal/central extension of the left popliteal deep vein thrombosis to involve the left superficial femoral or common femoral veins. 3. No evidence for deep vein thrombosis involving the right lower extremity. Electronically signed by: Brian Chirinos MD 04/20/23 03:10 AM
[2023-04-20 06:01] LABS: Basophils # (auto) 0.03 K/uL (0.00-0.20); Basophils % (auto) 0.3 %; Eosinophils # (auto) 0.19 K/uL (0.00-0.50); Eosinophils % (auto) 1.8 %; Hemoglobin 14.7 g/dl (14.0-18.0); Immature Granulocytes # (auto) 0.04 K/uL (0.01-0.20); Immature Granulocytes % (auto) 0.4 %; Lymphocytes # (auto) 3.63 K/uL (1.20-3.40); Lymphocytes % (auto) 35.3 %; Mean Corpuscular Hemoglobin 29.3 pg (25.0-34.0); Mean Corpuscular Hgb Conc 32.7 g/dL (32.0-36.0); Mean Corpuscular Volume 89.6 fL (80.0-100.0); Mean Platelet Volume 9.2 fL (9.4-12.4); Monocytes % (auto) 7.8 %; Neutrophils % (auto) 54.4 %; Platelet Count 241 K/uL (130-400); RDW Coefficient of Variation 13.4 % (11.5-14.5); Red Blood Count 5.02 M/uL (4.70-6.10); White Blood Count 10.29 K/ul (4.8-10.8)
[2023-04-20 06:17] LABS: Albumin Globulin Ratio 1.2 (0.9-2); Albumin Level 3.7 gm/dl (3.4-5.0); BUN Creatinine Ratio 15.4 (10-20); Bilirubin,Total 0.4 mg/dl (0.2-1.0); Calcium 8.6 mg/dl (8.6-10.3); Creatinine Clr Calc Pharmacy 139.9 ml/min; Est GFR (African American) 113.5 ml/min; Est GFR (Non-African American) 97.9 ml/min; Magnesium 1.9 mg/dl (1.7-2.4); Total Protein 6.7 gm/dl (6.0-8.3)
[2023-04-20 06:20] LABS: ANTI-Xa, UFH(UnfractionatedHep 0.33 IU/ml (0.3-0.7)
[2023-04-20 07:25] LABS: Estimated Average Glucose 134 mg/dl; Hemoglobin A1C 6.3 % (4.5-5.6)
--- NOTE | 2023-04-20 07:58 | Electrocardiogram Report ---
Test Reason : Blood Pressure : / mmHG Vent. Rate : 073 BPM Atrial Rate : 073 BPM P-R Int : 164 ms QRS Dur : 090 ms QT Int : 398 ms P-R-T Axes : 056 030 002 degrees QTc Int : 438 ms Normal sinus rhythm Normal ECG When compared with ECG of 19-APR-2023 09:59, No significant change was found Confirmed by Ronak Garrett ([id number]) on 04/20/2023 7:58:04 AM Referred By: REFERRED SELF Confirmed By:Ronak Garrett
[2023-04-20] MEDS ORDERED: SERTRALINE HCL 50 MG TABLET PO SCH (09:00)
[2023-04-20] MEDS: SERTRALINE HCL 50 MG TABLET PO SCH (09:07)
--- NOTE | 2023-04-20 09:31 | Pulmonary Consultation ---
Date of Consultation April 20, 2023 Assessment & Plan (1) Pulmonary embolism: Patient with unprovoked PE. Recommend hypercoagulable workup and outpatient hematology referral. Factor V Leiden mutation and prothrombin gene mutation ordered by hospital service. Patient can be transitioned to DOAC at this time and discharged home. He will need a follow-up echo in 3 months given the RV strain noted on echo this admission. Patient encouraged to avoid overtly strenuous activity for the next 1 month given RV strain noted on echo. Acute cor pulmonale presence: with acute cor pulmonale Chronicity: acute Pulmonary embolism type: unspecified Qualified Code(s): I26.09 - Other pulmonary embolism with acute cor pulmonale (2) DVT (deep venous thrombosis): Continue anticoagulation as above Affected thrombotic vein of extremity: popliteal Chronicity: acute DVT location: lower extremity Laterality: left Qualified Code(s): I82.432 - Acute embolism and thrombosis of left popliteal vein (3) PRESLEY (obstructive sleep apnea): Continue use of CPAP. (4) Obesity, Class III, BMI 40-49.9 (morbid obesity): Weight loss strongly encouraged as this is a significant risk factor for recurrent VTE. Recommend discussion with anticoagulation clinic regarding the appropriateness of DOAC therapy given his elevated BMI. Plan Thank you for the consult. Pulmonary to sign off. Please call with questions. History of Present Illness Reason for Consultation: Pulmonary embolism Attending Physician: Srinivasan Saez MD History of Present Illness 48-year-old male with a history of anxiety and depression, PRESLEY and obesity who presented to the hospital 04/19/2023 due to chest heaviness and shortness of breath after walking his dog. At rest he was not really experiencing any shortness of breath. Currently he denies any major complaints. He had a CT of his chest on admission which revealed extensive bilateral pulmonary emboli with right heart strain. Venous lower extremity Dopplers revealed partially occlusive thrombus in the left popliteal vein and occlusion of the left posterior tibial veins. Echo revealed a normal LVEF of 60 to 65% with RV overload. Troponin was mildly elevated to 234 and has decreased to 156. No obvious inciting or provoking event for his VTE. He feels good now and denies any shortness of breath or chest pain. Allergies Allergy/AdvReac Type Severity Reaction Status Date / Time Penicillins Allergy Unknown ? Unverified 11/30/15 08:07 Home Medications Medication Instructions Recorded Confirmed Type bupropion HCl 150 mg tablet,12 hr 150 mg PO AMHS 04/19/23 04/19/23 History sustained-release buspirone 30 mg tablet 15 mg PO AMHS 04/19/23 04/19/23 History lovastatin 40 mg tablet 80 mg PO HS 04/19/23 04/19/23 History sertraline 25 mg tablet 25 mg PO DAILY 04/19/23 04/19/23 History sertraline 50 mg tablet 50 mg PO DAILY 04/19/23 04/19/23 History Patient History Medical History (Updated 04/20/23 @ 12:24 by Freddie Hernandez MD) Obesity, Class III, BMI 40-49.9 (morbid obesity) Depression Pre-diabetes PRESLEY (obstructive sleep apnea) Hyperlipidemia Surgical History (Updated 04/19/23 @ 13:51 by Sue Pond PA-C) History of esophagogastroduodenoscopy (EGD) H/O colonoscopy No significant past surgical history Family History (Updated 04/19/23 @ 15:01 by Sue Pond PA-C) Denies family history of Clotting disorder Social History (Updated 04/19/23 @ 15:06 by Sue Pond PA-C) Smoking Status: Never smoker Hx Alcohol Use: No Hx Substance Use: No Preferred Language: Occitan Communication Ability: Effective [employer]ill Operator Required: No Beliefs That Will Affect Care: None marital status: Current Living Situation: Spouse current occupational status: employed Feels Safe at Home: Yes Assistive Devices: None Review of Systems Review of Systems: All systems reviewed & are unremarkable except as noted in HPI & below Physical Exam Physical Exam: Constitutional: Patient appears to be of their stated age. Patient is in no apparent distress. Patient is well-developed. Eyes: Pupils are equal round and reactive to light. Conjunctivae are normal. Anicteric sclera. Ears nose, mouth and throat: Deferred Neck: Trachea is midline. Visual inspection is normal. Respiratory: Clear to auscultation bilaterally. No use of accessory muscles. No significant clubbing noted. Cardiovascular: Regular rate and rhythm. No murmurs. No edema. Gastrointestinal: Normal bowel sounds, soft, nontender and nondistended. No hepatosplenomegaly noted. Musculoskeletal: No cyanosis. Patient is able to move all extremities. Stren gth is 5 out of 5 in the upper and lower extremities. Skin: No rashes, warm dry and intact. Neurologic: No obvious focal neurological deficits seen. Psychiatric: Alert and oriented x3 with a euthymic affect. Results & Data Results & Data Vital Signs (Past 12 Hours) Vital Signs Temp Pulse Pulse Resp BP Pulse Ox O2 Del Method 04/20/23 08:49 36.6 C 83 18 106/75 96 Room Air 04/20/23 03:17 36.6 C 84 16 106/76 95 Room Air 04/20/23 03:03 36.5 C 81 20 96 Room Air 04/19/23 22:43 82 04/19/23 22:30 36.8 C 88 20 125/81 94 Room Air PG Care Time/CCT Total # of Minutes Spent Total Time Spent with Patient: Total time spent is greater than 50% in coordination of care (as documented) at patient's floor/unit and/or counseling patient: Coding Level of Care Code 23065 INT INP/OBS CARE 2/55MIN Diagnoses Pulmonary embolism I26.09 Acute cor pulmonale presence: with acute cor pulmonale Chronicity: acute Pulmonary embolism type: unspecified DVT (deep venous thrombosis) I82.432 Affected thrombotic vein of extremity: popliteal Chronicity: acute DVT location: lower extremity Laterality: left PRESLEY (obstructive sleep apnea) G47.33 Obesity, Class III, BMI 40-49.9 (morbid obesity) E66.01
--- NOTE | 2023-04-20 11:31 | Hospitalist Progress Note ---
Date of Service April 20, 2023 Assessment & Plan (1) Pulmonary embolism: (2) Elevated troponin I level: (3) PRESLEY (obstructive sleep apnea): (4) Hyperlipidemia: Plan Per admitting service notes with addendum: This is a 48-year-old male who has a significant past medical history of HLD, prediabetes, depression, PRESLEY on CPAP who presents to ED secondary to chest pain and shortness of breath that started prior to arrival. Pulmonary embolism Right heart strain Acute pulmonary emboli due to left popliteal and posterior tibial DVT's admit to PCU He is otherwise hemodynamically stable and not requiring oxygen support --Chest CTA Extensive bilateral pulmonary emboli with right heart strain. --Echo: EF 60 to 65%, abnormal septal motion consistent with right ventricular pressure/volume overload. LV wall motion is otherwise normal. Right ventricle. Severely dilated with severe diffuse right ventricular hypokinesis. Significant tricuspid regurg is absent. Normal pulmonary arterial systolic pressure although 2D findings suggestive of elevated right heart filling pressures. 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 Salas, does not recommend DOAC's in light of patient's weight category Recommends Coumadin with Lovenox bridge Will continue heparin drip until 8 PM at that point it will be stopped and Lovenox 125 mg every 12 will be started Coumadin 7.5 mg p.o. daily to be started at 4 PM today Patient needs to be established with [facility], will notify their office Monitor closely HLD chronic, stable continue statin PRESLEY on cpap continue HS cpap Depression continue wellbutrin, buspar mood stable DVT ppx: IV Heparin FULL CODE PCP: Dr. Juliann Fernández Dispo:pending Anticipate discharge to home tomorrow if patient remains medically stable plan of care discussed with patient and family at the bedside in detail and at length all questions answered they are understanding, agreeable, comfortable with the plan of care Admission and Anticipated Discharge Date Admission Date: April 19, 2023 Subjective Follow-up for acute PE, etc Seen walking around the room, comfortable, not in distress States he feels improved compared to yesterday No shortness of breath, chest pain, palpitations, dizziness No signs of bleeding No fever or chills Review of Systems Review of Systems: all noted and negative except for above Physical Exam Physical Exam: General- oriented x 3, not in distress, speaks in sentences with no effort or accessory muscle use Eyes- anicteric Neck- no JVD Lungs- clear breath sounds bilaterally, no rales/wheezes Heart- normal rate, regular rhythm; no murmurs Abdomen- normal bowel sounds, nondistended, soft, nontender Extremities- no pretibial edema, no calf tenderness Neuro- alert, oriented x 3; no gross focal neurologic deficits Skin- warm & dry Results & Data Results & Data Vital Signs (Past 12 Hours) Vital Signs Temp Pulse Resp BP Pulse Ox O2 Del Method 04/20/23 08:49 36.6 C 83 18 106/75 96 Room Air 04/20/23 03:17 36.6 C 84 16 106/76 95 Room Air 04/20/23 03:03 36.5 C 81 20 96 Room Air all noted and reviewed including below (1) Pulmonary embolism Acute cor pulmonale presence: with acute cor pulmonale Chronicity: acute Pulmonary embolism type: unspecified Qualified Code(s): I26.09 - Other pulmonary embolism with acute cor pulmonale
[2023-04-20] MEDS ORDERED: APIXABAN 5 MG TABLET PO SCH (13:15)
[2023-04-20] MEDS: WARFARIN SOD 7.5 MG TAB PO SCH (17:19)
[2023-04-20] MEDS: ENOXAPARIN 150 MG/ML SYR SQ SCH (20:08)
[2023-04-20] MEDS: [UNRECOGNIZED DRUG - REMARK] ONE (21:08)
[2023-04-21 06:03] LABS: Basophils # (auto) 0.03 K/uL (0.00-0.20); Basophils % (auto) 0.3 %; Eosinophils # (auto) 0.17 K/uL (0.00-0.50); Eosinophils % (auto) 1.8 %; Hematocrit (blood only) 42.6 % (42.0-52.0); Hemoglobin 14.1 g/dl (14.0-18.0); Immature Granulocytes # (auto) 0.02 K/uL (0.01-0.20); Immature Granulocytes % (auto) 0.2 %; Lymphocytes # (auto) 3.25 K/uL (1.20-3.40); Lymphocytes % (auto) 33.5 %; Mean Corpuscular Hemoglobin 29.9 pg (25.0-34.0); Mean Corpuscular Hgb Conc 33.1 g/dL (32.0-36.0); Mean Corpuscular Volume 90.3 fL (80.0-100.0); Mean Platelet Volume 9.3 fL (9.4-12.4); Monocytes # (auto) 0.81 K/uL (0.11-0.59); Monocytes % (auto) 8.4 %; Neutrophils # (auto) 5.42 K/uL (1.40-6.50); Neutrophils % (auto) 55.8 %; Platelet Count 230 K/uL (130-400); RDW Coefficient of Variation 13.2 % (11.5-14.5); RDW Standard Deviation 43.8 fL (36.4-46.3); Red Blood Count 4.72 M/uL (4.70-6.10)
[2023-04-21 06:24] LABS: BUN Creatinine Ratio 16.5 (10-20); Calcium 8.7 mg/dl (8.6-10.3); Creatinine Clr Calc Pharmacy 122.5 ml/min; Est GFR (African American) 97.7 ml/min; Est GFR (Non-African American) 84.3 ml/min; Potassium 4.1 mmol/L (3.5-5.1)
[2023-04-21 06:26] LABS: Prothrombin Time 10.9 Seconds (9.0-12.0)
[2023-04-21 07:49] VITALS: TEMP 98.2
[2023-04-21 11:22] VITALS: BP 136/96; PULSE 73; RESP 20; O2SAT 95
[2023-04-25 00:17] LABS: Protein S Functional(Activity) 95 % normal (70-150)
== END 2023-04-21 14:15 | disposition home or self-care (01) | DRG 299 ==
LOC: ED 09:42 → EDINP 13:24 → SUATTDRO 13:24 → 2E 17:24